=== PATIENT | female | born 1945 | race Caucasian/White ===

== ENCOUNTER 2021-08-31 20:19 | Observation (INO) | payer MEDICARE, OTHER, SELFPAY ==
[2021-08-31 20:31] VITALS: BP 105/67; PULSE 70; RESP 18; TEMP 36.6; O2SAT 96; BMI 23.1
--- NOTE | 2021-08-31 20:35 | DI.RAD.S_ITS ---
PROCEDURE: XR CHEST 1V INDICATIONS: chest pain TECHNIQUE: One view of the chest was acquired. COMPARISON: None. FINDINGS: Surgical changes and devices: None. Lungs and pleura: Lungs are clear. No pleural effusions or pneumothorax. Mediastinum: Mediastinal contours appear normal. Heart size is normal. Bones and chest wall: No suspicious bony lesions. Overlying soft tissues appear unremarkable. IMPRESSION: No acute abnormality Dictated by: Van Smith M.D. on 08/31/2021 at 21:03 Approved by: Van Smith M.D. on 08/31/2021 at 21:08
[2021-08-31 21:25] LABS: Add Manual Diff / Slide Review NO; Basophils Absolute Auto 0 /uL (0-100); Basophils Percent Auto 0.2 % (0-2); Eosinophils Absolute Auto 0 /uL (0-450); Eosinophils Percent Auto 0.1 % (2-4); Hematocrit 31.5 % (36-46); Hemoglobin 11.1 g/dL (12.0-16.0); Lymphocytes Absolute Auto 900 /uL (1100-4500); Lymphocytes Percent Auto 7.4 % (25-40); Mean Corpuscular HGB Conc 35.2 % (30-36); Mean Corpuscular Volume 93.9 fL (80-100); Monocytes Absolute Auto 900 /uL (0-900); Monocytes Percent Auto 7.3 % (3-14); Neutrophils Absolute Auto 10500 /uL (1500-7000); Platelet Count 224 X10^3/uL (150-400); Red Blood Cell Count 3.36 X10^6/uL (4.0-5.2); Red Cell Distribution Width 12.9 % (11.6-14.8); White Blood Cell Count 12.3 X10^3/uL (4.5-11.0)
[2021-08-31 21:33] LABS: Alanine Aminotransferase 148 IU/L (<35); Albumin 4.1 g/dL (3.5-5.0); Albumin Globulin Ratio 1.5 (1.0-2.8); Alkaline Phosphatase 125 U/L (38-126); Aspartate Aminotransferase 163 IU/L (14-36); BUN Creatinine Ratio 16.3 (6-22); Bilirubin Total 1.9 mg/dL (0.2-1.3); Blood Urea Nitrogen 13 mg/dL (7-17); Calcium 9.2 mg/dL (8.4-10.2); Carbon Dioxide 29 mmol/L (22-32); Chloride 90 mmol/L (98-107); Creatine Kinase 27 U/L (30-135); Estimated Glomerular Filt Rate > 60.0 mL/min (>60); Globulin 2.8 g/dL (1.7-4.1); Glucose 229 mg/dL (80-110); HEMOLYSIS < 15 (0-50); Lipase 42 U/L (23-300); Magnesium 1.4 mg/dL (1.6-2.3); Sodium 124 mmol/L (137-145); Total Protein 6.9 g/dL (6.3-8.2)
[2021-08-31 21:38] LABS: Bacteria Urine Few (2-10); Culture Indicated Urine Specimen Cultured; RBC Urine 0-1/HPF (0-5/HPF); Squamous Epithelial Cell Urine 0-1 /HPF (0-5/HPF); WBC Urine 1-5/HPF (0-5/HPF)
[2021-08-31 21:45] LABS: Troponin I < 0.012 ng/mL (0.01-0.034)
[2021-08-31 21:47] LABS: COVID19 -Nasal RAPID Negative (Negative)
[2021-09-01] VITALS (36 sets, daily range): BP systolic 81–140; BP diastolic 43–76; PULSE 58–82; RESP 8–97; TEMP 36.2–37.9; O2SAT 90–100; BMI 23.1
--- NOTE | 2021-09-01 | PATH_ITS ---
[facility] Accession Number: [id number] . 01 Material submitted: . appendix - APPENDIX . 02 Diagnosis: Appendix, Laparoscopic Appendectomy: Goblet cell adenocarcinoma. Please see Cancer Case Summary. . CASE SUMMARY: SPECIMEN Procedure: Laparoscopic appendectomy. . Tumor Tumor site: Circumferentially involves distal and central appendix. 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 Tumor Size (greatest dimension in centimeters): At least 1.2 cm; cannot be precisely determined due to absence of gross identification. Measurement taken from largest circumference on a single slide and by the addition of three 0.4 cm-thick sections. This may be a low estimate given the that the appendix is 8.0 cm in length and the tumor appears to involve the mid and distal appendix. Tumor deposits: Not identified. Tumor extent: Tumor invades through muscularis propria into subserosa/ mesoappendix but does not involve the serosal surface. Lymphovascular invasion: Present. Perineural invasion: Suspicious foci present. . . Margins: Margin status for invasive carcinoma: Negative for tumor. Base of appendix (proximal appendiceal margin): Negative for tumor by immunohistochemistry. Distance from invasive carcinoma to closest mesenteric margin: Within 1 mm. . . Regional Lymph Nodes: Regional lymph node status: Not applicable (no regional lymph nodes submitted or found). . . Pathologic Stage Classification (pTNM, AJCC 8th Edition): pT3, pN not assigned (no nodes submitted or found), pM not applicable. . . Additional Findings: Acute appendicitis and periappendicitis with perforation, fecalith within appendiceal tip. . . . . [facility] 09/08/2021 1609 Local . 02 Comment: As part of routine chemistry quality control analyst, Dr. Bell also reviewed this case and agrees with the diagnosis. . Results discussed with Dr. Gutierrez on 09-06-21 at approximately 4:01 p.m. . 02 Electronically signed: . Krystal Sawyer MD, Pathologist NPI- [id number] . 01 Gross description: . The specimen is received in formalin labeled with the patient's name and appendix. It is composed of a vermiform appendix which measures 8.0 cm in length x 0.7 cm in maximum diameter. The attached mesoappendix measures 4.0 x 1.0 x 0.8 cm. The serosal surface is diop-brown and shows areas of hemorrhage and congestion. An obvious perforation is not identified. The attached mesoappendix is composed of adipose tissue which is hemorrhagic. The appendix is serially sectioned to reveal soft fecal material present in the lumen. In areas, the lumen is obliterated and in a focal area shows luminal dilation of 0.2 cm. A hard fecalith is identified in the tip of the appendix. The lumen surrounding the fecalith is hemorrhagic. No discrete masses are identified. Company [employer] sections are submitted. . A1- Proximal margin en face (blue ink). A2 - Longitudinal section through the tip of the appendix. A3 - Company [employer]orer cross sections of the appendix. ([id number]) A4-A6 - Remaining appendiceal tissue (minus periappendiceal fat) entirely submitted. ([id number]) /[facility] 09/07/2021 1435 Local . 02 Microscopic: . An immunohistochemistry study is performed to evaluate the cells of interest. The control stain shows appropriate reactivity. . Block A3: ABRAHAM - Positive. CK7 - Negative. CK20 - Positive. CDX2 - Positive. Villin - [place] border positive. TOMAS-3 - Negative. TTF-1 - Negative. Chromogranin - Focally positive. Synaptophysin - Focally positive. . Block A1 proximal margin: ABRAHAM: No tumor identified. . The neoplasm is immunopositive for ABRAHAM, CK20, cdx2, and villin and is focally immunopositive for chromogranin and synaptophysin. The neoplasm is immunonegative for CK7, GATA3, and TTF-1. These finding support an interpretation of goblet cell adenocarcinoma. . Per the request of Dr. Gutierrez, immunohistochemical stains for mismatch repair proteins are performed, with controls stained appropriately. The tumor shows the following results: . MLH1: Intact nuclear expression. MSH2: Intact nuclear expression. MSH6: Intact nuclear expression. PMS2: Intact nuclear expression. Background nonneoplastic tissue/internal control with intact nuclear expression. . . INTERPRETATION: No loss of nuclear expression of MMR proteins: low probability of microsatellite instability-high (MSI-H)* . * There are exceptions to the above IHC interpretations. These results should not be considered in isolation, and clinical correlation with genetic counseling is recommended to assess the need for germline testing. . . * This test was developed and its performance characteristics determined by [facility]. It has not been cleared or approved by the U.S. Food and Drug Administration. The FDA has determined that such clearance or approval is not necessary. This test is used for clinical purposes. It should not be regarded as investigational or for research. . . . 02 Pathologist provided ICD-10: C18.1, C7A.020 . 02 CPT . 584475, Z02745, L53324 Specimen Comment: A courtesy copy of this report has been sent to [phone] Performed at: [facility] [address] [id number] MD Per Ibarra MD Phone: [phone] Performed at: [address] [facility] [address] [place], [place] [id number] MD Jagruti Bell MD Phone: [phone]
[2021-09-01] MEDS: SODIUM CHLORIDE 0.9% 1,000 ML 1000 ML IV (01:15)
--- NOTE | 2021-09-01 02:34 | ED.GENADULT ---
HPI - General Adult General Chief complaint: Syncope Stated complaint: not feeling well, passed out at home Time Seen by Provider: 09/01/21 01:01 Source: patient Mode of arrival: Ambulatory History of Present Illness HPI narrative: 76-year-old woman with a history of type 2 diabetes and hypertension presents with 24 hours of feeling generally unwell and then increasing right-sided abdominal pain. She notes that she has been somewhat more fatigued but describes no fevers, nausea, vomiting. She complains of a bit of abdominal bloating but notes that she had a normal bowel movement yesterday. She is not having any chest pain or palpitations. She notes that she recently changed her diet to a completely weak in diet and was assuming that the increased fiber was causing some of her symptoms. Related Data Allergies Allergy/AdvReac Type Severity Reaction Status Date / Time prednisone Allergy Intermediate Difficulty Verified 08/31/21 20:34 Breathing Review of Systems Review of Systems Narrative: Remainder of complete review of systems is otherwise unremarkable except for that included in the HPI. Patient History Medical History (Updated 09/01/21 @ 05:00 by Kylee Cerna MD) Diabetes Hypertension Social History Smoking Status: Current every day smoker Smoking Status: Current every day smoker alcohol intake frequency: holidays/special occasions only Substance Use Type: does not use Exam Initial Vital Signs Initial Vital Signs: Vital Signs Temperature 97.8 F 08/31/21 20:31 Pulse Rate 70 08/31/21 20:31 Respiratory Rate 18 08/31/21 20:31 Blood Pressure 105/67 08/31/21 20:31 Pulse Oximetry 96 08/31/21 20:31 General: Healthy appearing, in no acute distress. Able to give a complete and coherent history. Well-nourished well-developed HEENT: Moist mucous membranes, normal sclera with reactive pupils, Neck: No JVD, supple Respiratory: Lungs with minor rhonchi in the right lower lobe, no wheezing. Full and symmetrical air movement Cardiac: Regular rate and rhythm no murmurs no bruits Abdomen: Soft, mild distension with tenderness along the entire right side and specifically into the right lower quadrant with developing peritoneal signs. Good bowel tones, no flank pain Skin: Warm and dry, no rashes Neurologic: Grossly neurologically intact with no obvious asymmetries or abnormalities Extremities: No trauma, well perfused Psych: Cooperative, appropriate insight and affect Course Orders Ordered: ED Orders 08/31/21 20:35 XR chest 1V Stat 08/31/21 20:47 EKG-12 Lead Stat 08/31/21 21:15 COVID19 -Nasal swab/Pre-Proc Stat Complete Blood Count AUTO DIFF Stat Comprehensive Metabolic Panel Stat Lipase Stat Magnesium Stat Troponin & CK Cardiac Panel Stat 08/31/21 21:17 Urine Culture Stat Urine Microscopic Stat 09/01/21 02:59 CT abdomen pelvis w con Stat Discontinued Medications Sodium Chloride (Normal Saline 0.9%) 1,000 mls @ 1,000 mls/hr IV BOLUS ONE Stop: 09/01/21 02:04 Last Infusion: 09/01/21 03:09 Dose: 0 mls/hr Documented by: Admin: 09/01/21 01:15 Dose: 1,000 mls/hr Documented by: ROLAN Vital Signs Vital signs: Vital Signs - 8 hr 09/01/21 01:16 09/01/21 01:17 09/01/21 01:30 Pulse Rate 61 58 L 59 L Blood Pressure 135/65 126/63 Pulse Oximetry 98 97 98 09/01/21 02:00 09/01/21 02:30 09/01/21 03:00 Pulse Rate 65 61 63 Blood Pressure 140/65 124/57 L 140/64 Pulse Oximetry 98 98 99 Medical Decision Making Lab Data Result diagrams: 08/31/21 21:15 08/31/21 21:15 Labs: Lab Results 08/31/21 08/31/21 08/31/21 Range/Units 21:15 21:15 21:15 WBC 12.3 H (4.5-11.0) X10^3/uL RBC 3.36 L (4.0-5.2) X10^6/uL Hgb 11.1 L (12.0-16.0) g/dL Hct 31.5 L (36-46) % MCV 93.9 (80-100) fL MCH 33.0 (26-34) PG MCHC 35.2 (30-36) % RDW 12.9 (11.6-14.8) % Plt Count 224 (150-400) X10^3/uL Neut % (Auto) 85.0 H (50-75) % Lymph % (Auto) 7.4 L (25-40) % [place] % (Auto) 7.3 (3-14) % Eos % (Auto) 0.1 L (2-4) % Baso % (Auto) 0.2 (0-2) % Neut # (Auto) 04540 H (9824-3668) /uL Lymph # (Auto) 900 L (8913-0086) /uL [place] # (Auto) 900 (0-900) /uL Eos # (Auto) 0 (0-450) /uL Baso # (Auto) 0 (0-100) /uL Sodium 124 L (137-145) mmol/L Potassium 4.0 (3.4-5.1) mmol/L Chloride 90 L (98-107) mmol/L Carbon Dioxide 29 (22-32) mmol/L BUN 13 (7-17) mg/dL Creatinine 0.80 (0.52-1.04) mg/dL Estimated GFR > 60.0 (>60) mL/min BUN/Creatinine Ratio 16.3 (6-22) Glucose 229 H (80-110) mg/dL Calcium 9.2 (8.4-10.2) mg/dL Magnesium 1.4 L (1.6-2.3) mg/dL Total Bilirubin 1.9 H (0.2-1.3) mg/dL AST 163 H (14-36) IU/L ALT 148 H (<35) IU/L Alkaline Phosphatase 125 (38-126) U/L Total Creatine Kinase 27 L (30-135) U/L CK-MB (CK-2) TNP CK-MB (CK-2) Rel Index TNP Troponin I < 0.012 (0.01-0.034) ng/mL Total Protein 6.9 (6.3-8.2) g/dL Albumin 4.1 (3.5-5.0) g/dL Globulin 2.8 (1.7-4.1) g/dL Albumin/Globulin Ratio 1.5 (1.0-2.8) Lipase 42 (23-300) U/L Urine RBC (0-5/HPF) Urine WBC (0-5/HPF) Ur Squamous Epith Cells (0-5/HPF) Urine Bacteria (None) Ur Culture Indicated? SARS-CoV-2 (PCR) Negative (Negative) 08/31/21 Range/Units 21:17 WBC (4.5-11.0) X10^3/uL RBC (4.0-5.2) X10^6/uL Hgb (12.0-16.0) g/dL Hct (36-46) % MCV (80-100) fL MCH (26-34) PG MCHC (30-36) % RDW (11.6-14.8) % Plt Count (150-400) X10^3/uL Neut % (Auto) (50-75) % Lymph % (Auto) (25-40) % [place] % (Auto) (3-14) % Eos % (Auto) (2-4) % Baso % (Auto) (0-2) % Neut # (Auto) (3799-7547) /uL Lymph # (Auto) (8821-3399) /uL [place] # (Auto) (0-900) /uL Eos # (Auto) (0-450) /uL Baso # (Auto) (0-100) /uL Sodium (137-145) mmol/L Potassium (3.4-5.1) mmol/L Chloride (98-107) mmol/L Carbon Dioxide (22-32) mmol/L BUN (7-17) mg/dL Creatinine (0.52-1.04) mg/dL Estimated GFR (>60) mL/min BUN/Creatinine Ratio (6-22) Glucose (80-110) mg/dL Calcium (8.4-10.2) mg/dL Magnesium (1.6-2.3) mg/dL Total Bilirubin (0.2-1.3) mg/dL AST (14-36) IU/L ALT (<35) IU/L Alkaline Phosphatase (38-126) U/L Total Creatine Kinase (30-135) U/L CK-MB (CK-2) CK-MB (CK-2) Rel Index Troponin I (0.01-0.034) ng/mL Total Protein (6.3-8.2) g/dL Albumin (3.5-5.0) g/dL Globulin (1.7-4.1) g/dL Albumin/Globulin Ratio (1.0-2.8) Lipase (23-300) U/L Urine RBC 0-1/hpf (0-5/HPF) Urine WBC 1-5/hpf (0-5/HPF) Ur Squamous Epith Cells 0-1 /hpf (0-5/HPF) Urine Bacteria Few (2-10) H (None) Ur Culture Indicated? Specimen cultured SARS-CoV-2 (PCR) (Negative) Urine Dip Bedside Urine Glucose Negative Bedside Urine Bilirubin - Negative Bedside Urine Ketone +/- 5 Urine Specific [place] 1.015 Bedside Urine Occult Blood - Negative Bedside Urine pH 7 Bedside Urine Protein + 30 Bedside Urine Urobilinogen 1+ 2mg Bedside Urine Nitrite - Negative Bedside Urine Leukocytes + 70 Esterase Point of care testing: Urine Dip Bedside Urine Glucose Negative Bedside Urine Bilirubin - Negative Bedside Urine Ketone +/- 5 Urine Specific [place] 1.015 Bedside Urine Occult Blood - Negative Bedside Urine pH 7 Bedside Urine Protein + 30 Bedside Urine Urobilinogen 1+ 2mg Bedside Urine Nitrite - Negative Bedside Urine Leukocytes + 70 Esterase Imaging Data Chest x-ray: Radiologist's Impression: FINDINGS:? ? Surgical changes and devices:? None.? ? Lungs and pleura:? Lungs are clear.? No pleural effusions or pneumothorax.? ? Mediastinum:? Mediastinal contours appear normal.? Heart size is normal.? ? Bones and chest wall:? No suspicious bony lesions.? Overlying soft tissues appear unremarkable.? ? IMPRESSION:? No acute abnormality ? ? Dictated by: Van Smith M.D. on 08/31/2021 at 21:03 ? ? CT scan - abdomen/pelvis: Radiologist's Impression: Findings compatible with acute appendicitis. No cat appendiceal focal drainable collection or pneumoperitoneum. Diffuse circumferential wall thickening of the cecum and ascending colon which may be related to under distention, however, a mild colitis could also have this appearance. Meseret Edmonds MD ECG Data Interpretation: Sinus rhythm at a rate of 71 Normal intervals, normal axis Nonspecific ST T wave changes No acute ischemic changes MDM Narrative Medical decision making narrative: 76-year-old woman presents with right-sided abdominal pain and clinical exam is slightly distended with increasing right lower quadrant pain, mild leukocytosis and abnormal LFTs. CT scan is ordered. CT scan returns with findings compatible with acute appendicitis. Case is reviewed with Dr. Gutierrez, general surgeon. Antibiotics will be initiated, bridging orders are written. Patient will be admitted with anticipation of surgical intervention later today. Findings are reviewed with patient's questions are answered. She remains clinically stable and safe for transfer to the floor. She will need to remain NPO. Discharge Plan Departure Patient Disposition: Admitted as Observation Clinical Impression: Acute appendicitis Admit Date/Time: 09/01/21 04:36 Admit Provider: Paulie Gutierrez
--- NOTE | 2021-09-01 02:59 | DI.CT.S_ITS ---
PROCEDURE: CT ABDOMEN PELVIS W CON INDICATIONS: Right lower quadrant pain, leukocytosis TECHNIQUE: After the administration of oral and IV contrast, axial sections were acquired from the lung bases to the pubic symphysis. Coronal and sagittal reformats were performed. For radiation dose reduction, the following was used: automated exposure control, adjustment of mA and/or kV according to patient size. COMPARISON: [facility], CR, XR CHEST 1V, 08/31/2021, 20:43. FINDINGS: Image quality: Excellent. Lung bases: Lingular, left lower lobe and right middle lobe scars and atelectasis. Small hiatal hernia. Heart: Heart size is normal. There is trace pericardial effusion. ABDOMEN: Liver: Unremarkable. Gallbladder: Unremarkable. Biliary ducts: Unremarkable. Pancreas: Mild atrophy of pancreas. Spleen: Unremarkable. Adrenal Glands: Unremarkable. Kidneys and Ureters: Unremarkable. Stomach and Bowel: There is a appendicoliths. Appendix is thickened measuring 11 mm. There is cecal thickening. Mild stranding in the right lower quadrant. A small amount of free fluid is present in the right pericolic gutter. No free air. No organized drainable fluid collections. Peritoneum: No abnormal intraperitoneal fluid. No free air. Ventral Wall: No hernia. Abdominal Nodes: No retroperitoneal or mesenteric adenopathy by size criteria. Vessels: Aorta and inferior vena cava are normal in size. PELVIS: Pelvic Organs: Uterus is normal in size. There is a 1.9 x 1.5 cm enhancing nodule in central uterus with partial calcification, likely a uterine fibroid. Ovaries are grossly normal. No free fluid in the cul-de-sac. Bladder: Bladder is distended. Bladder wall is normal. Pelvic Nodes: No enlarged lymph nodes. Miscellaneous: No inguinal hernias are seen. Bones: Moderate degenerative changes in lumbar spine. IMPRESSION: 1. The CT findings suggest acute appendicitis. A differential diagnosis is cecal cancer or segmental colitis. There is a small amount of free fluid in the right pericolic gutter. No organized fluid collections to suggest abscess. No free air to suggest perforation. 2. Please see the body of the report for other nonurgent incidental findings. No significant discrepancy with the ammonia box tender radiology preliminary report. Dictated by: Christophe Torres M.D. on 09/01/2021 at 8:00 Approved by: Christophe Torres M.D. on 09/01/2021 at 8:12
[2021-09-01] MEDS: PIPERACILLIN/TAZO 4.5 GM in SODIUM CHLORIDE 0.9% 100 ML 200 ML IV (05:51)
[2021-09-01] MEDS: SODIUM CHLORIDE 0.9% 1,000 ML 125 ML IV ×2 (05:51→19:40)
[2021-09-01] MEDS: HYDROMORPHONE 1 MG INJ 0.5 MG IV ×2 (06:45→12:22)
[2021-09-01] MEDS: PIPERACILLIN/TAZO 3.375 GM in SODIUM CHLORIDE 0.9% 100 ML 25 ML IV ×2 (12:21→19:40)
--- NOTE | 2021-09-01 12:30 | PM.HP.1 ---
History of Present Illness History of Present Illness Date Patient Seen: 09/01/21 Time Patient Seen: 12:30 Chief complaint: not feeling well, passed out at home Narrative: 76-year-old woman admitted to the hospital with acute appendicitis. She had generalized pain for several days became acutely worse and primarily focal to the right lower quadrant. Admission in the emergency room WBC [address] demonstrates dilated appendix with stranding and fecalith, no abscess consistent with acute appendicitis. She received is Zosyn her pain is improved since admission. No previous abdominal surgery. Insulin-dependent diabetes Patient History Medical History Diabetes Hypertension Family & Social History Social History: household members spouse Prior Living Arrangements House Safety & Behavioral: Feels Safe in Current Yes Environment Been Physically Hurt or No Threatened By a Person Suicidal Ideation Description None Suicide Plan Description No Plan Tobacco & Substance use: Smoking Status Never smoker alcohol intake current alcohol intake frequency holiday/special occasion Substance Use Type does not use Meds Home Medications and Allergies Home Medications Medication Instructions Recorded Confirmed Type carvedilol 25 mg tablet 25 mg PO BID 09/01/21 09/01/21 History insulin glargine 100 unit/mL (3 20 unit SUBCUT BEDTIME 09/01/21 09/01/21 History mL) subcutaneous pen (Basaglar KwikPen U-100 Insulin) lisinopril 40 mg tablet 40 mg PO DAILY 09/01/21 09/01/21 History metformin 850 mg tablet 850 mg PO TID 09/01/21 09/01/21 History Allergies Allergy/AdvReac Type Severity Reaction Status Date / Time prednisone Allergy Intermediate Difficulty Verified 08/31/21 20:34 Breathing Exam Vital Signs (past 8 hours): - 09/01/21 05:00 09/01/21 05:08 09/01/21 05:10 Temperature Pulse Rate 67 66 Respiratory Rate Blood Pressure 123/60 Pulse Oximetry 97 97 09/01/21 05:29 09/01/21 09:38 09/01/21 12:22 Temperature 100.3 F H 97.8 F 98.8 F Pulse Rate 81 68 64 Respiratory Rate 18 16 16 Blood Pressure 122/61 104/43 L 104/54 L Pulse Oximetry 98 95 97 Oxygen Delivery Method Room Air Oxygen Flow Rate 0 Narrative Exam Narrative: GENERAL: Adult female in no apparent distress HEENT: No scleral icterus CV: Regular rate, no peripheral edema LUNGS: No increased work of breathing. Patient speaks in full sentences without oxygen support. ABDOMEN: Tender right lower quadrant no peritonitis NEURO: Nonfocal, normal strength throughout, normal gait. SKIN: Warm and dry Objective Labs Result Diagrams: 08/31/21 21:15 08/31/21 21:15 Labs: Laboratory Results - last 24 hr 08/31/21 08/31/21 08/31/21 21:15 21:15 21:15 WBC 12.3 H RBC 3.36 L Hgb 11.1 L Hct 31.5 L MCV 93.9 MCH 33.0 MCHC 35.2 RDW 12.9 Plt Count 224 Neut % (Auto) 85.0 H Lymph % (Auto) 7.4 L [place] % (Auto) 7.3 Eos % (Auto) 0.1 L Baso % (Auto) 0.2 Neut # (Auto) 85374 H Lymph # (Auto) 900 L [place] # (Auto) 900 Eos # (Auto) 0 Baso # (Auto) 0 Sodium 124 L Potassium 4.0 Chloride 90 L Carbon Dioxide 29 BUN 13 Creatinine 0.80 Estimated GFR > 60.0 BUN/Creatinine Ratio 16.3 Glucose 229 H Calcium 9.2 Magnesium 1.4 L Total Bilirubin 1.9 H AST 163 H ALT 148 H Alkaline Phosphatase 125 Total Creatine Kinase 27 L CK-MB (CK-2) TNP CK-MB (CK-2) Rel Index TNP Troponin I < 0.012 Total Protein 6.9 Albumin 4.1 Globulin 2.8 Albumin/Globulin Ratio 1.5 Lipase 42 Urine RBC Urine WBC Ur Squamous Epith Cells Urine Bacteria Ur Culture Indicated? SARS-CoV-2 (PCR) Negative 08/31/21 21:17 WBC RBC Hgb Hct MCV MCH MCHC RDW Plt Count Neut % (Auto) Lymph % (Auto) [place] % (Auto) Eos % (Auto) Baso % (Auto) Neut # (Auto) Lymph # (Auto) [place] # (Auto) Eos # (Auto) Baso # (Auto) Sodium Potassium Chloride Carbon Dioxide BUN Creatinine Estimated GFR BUN/Creatinine Ratio Glucose Calcium Magnesium Total Bilirubin AST ALT Alkaline Phosphatase Total Creatine Kinase CK-MB (CK-2) CK-MB (CK-2) Rel Index Troponin I Total Protein Albumin Globulin Albumin/Globulin Ratio Lipase Urine RBC 0-1/hpf Urine WBC 1-5/hpf Ur Squamous Epith Cells 0-1 /hpf Urine Bacteria Few (2-10) H Ur Culture Indicated? Specimen cultured SARS-CoV-2 (PCR) Assessment & Plan Assessment and plan (1) Acute appendicitis: Status: Acute Assessment & Plan narrative: 76-year-old woman with insulin-dependent diabetes and acute appendicitis. CT abdomen pelvis was reviewed demonstrates a dilated appendix with fecalith no abscess. We discussed management options including both antibiotic and surgical therapy. Given the presence of fecalith recommended that we proceed with laparoscopic appendectomy. Technical details of the operation were discussed. Operative risks including bleeding, infection, staple line leak, damage to surrounding structures were discussed. Her questions have been answered she is in agreement with this plan. Time Spent With Patient Critical Care time: I spent a total of [] minutes of critical care time on this patient's care today; this time is exclusive of procedural time. Quality VTE Deep Vein Thrombosis/Pulmonary Embolism Present on Admission: No
--- NOTE | 2021-09-01 12:46 | CM.IDA ---
Initial DCP Assessment Note Pt is a 76 yo female, resident of [place],arrives after passing out at home found to have acute appendicitis and going to the OR today for lap lino w/ Dr christianson PCP: Not listed Payer: [employer] Reviewed chart, pt discussed in multidisciplinary rounds this morning. Patient scheduled for surgery at approx 1730. Attempted to meet w/patient this morning for DCP assessment and she was fast asleep; will reattempt assessment post operatively. Plan: DC likely home w/family and close outpatient f/u JANNY De León Discharge Planning/Care Management CM Discharge Assessment Start: 09/01/21 12:37 Freq: Status: Active Protocol: Document 09/01/21 12:38 JOSSELIN (Rec: 09/01/21 12:46 JOSSELIN [id number]) Discharge Planning Assessment Assigned Pharmacy Technician JANNY Veliz DPOA/Assigned Designee Name Abdi Roberts, spouse Contact Information [phone] Advance Directives? No History Provided By Medical Record Prior Living Arrangements House Household Members spouse Type of transportation used prior to Drives own vehicle admit Independent with ADL's Yes Is patient alert and oriented? Yes Barriers to Discharge No Comment Home w/spouse expected upon DC Discharge Plan Home Transportation Arrangement Spouse Referrals Initiated None needed Additional Comment No referrals needed at this time Whiteboard Updated in Patient Room with Yes name and ext. # of Pharmacy Technician
[2021-09-01] MEDS: LACTATED RINGERS 1,000 ML 42 ML IV (16:57)
[2021-09-01] MEDS: BUPIVACAINE 0.25% (PF) VIAL 30 ML INJ (17:29)
--- NOTE | 2021-09-01 17:33 | SUR.OPER ---
Supine on padded OR bed, head on pillow, right arm secured on padded arm boards at <90 degrees abduction, left arm padded with gel pad and yucked at side, legs uncrossed, safety belt at thigh, tape over blanket over lower legs. Gel pad under patients bilateral heels.
--- NOTE | 2021-09-01 17:38 | SUR.OPER ---
patients glasses placed in patient labeled black glass case provided by hospital. Pre-op RN kept and will place in PACU for patient after surgery.
--- NOTE | 2021-09-01 18:11 | P.OP_ITS ---
Operative Date/Time/Diagnoses Date of procedure: 09/01/21 Time of procedure: 18:11 Pre-op diagnosis: Acute appendicitis Post-op diagnosis: same Procedure & Clinicians Procedure: Laparoscopic appendectomy Same procedure as scheduled: Yes Indications: Acute appendicitis Surgeon: Paulie Gutierrez Click Yes if Unassisted: Yes Anesthesia Type: General Operative Notes Findings: Perforated appendicitis with a rind no hipolito abscess Specimen(s): other (Appendix) Estimated Blood Loss (mL): 20 Procedure in detail: Patient was brought to the operating room placed supine on the table. Bilateral lower extremity compression devices were applied. Anesthesia was induced and they intubated with an endotracheal tube. They received 3.375 g of Zosyn prior to skin incision. The left arm was tucked and appropriately padded. They were prepped and draped in sterile fashion. Time-out was performed. An infraumb ilical incision was made the umbilical stalk was grasped and elevated and incision was made and the abdomen was entered atraumatically. A 12 mm balloon trocar was then placed through the incision and pneumoperitoneum of 14 mm Hg was established. The scope was then inserted and the abdomen inspected, there was no evidence of injury upon entry. Two 5 mm ports were placed under direct visualization, one in the left lower quadrant and second in the lower midline. A thorough laparoscopic evaluation was performed inspecting all four quadrants, there was no purulence peritonitis. Patient was then tilted right side up. The small bowel was then swept to the upper aspect of the abdomen. The tenie were followed to the base of the cecum where the appendix was identified. It was partially retrocecal and I mobilized the cecum medially in order to completely expose it by incising the white line of Toldt. The appendix was was mobilized from its lateral attachments. The base of the appendix was healthy the tip had perforated and was within a rind of inflammatory tissue not a hipolito abscess. The appendix was grasped and a window within the mesentery was made at the base of the appendix using the [place] dissector with care to avoid injuring the cecum. The mesoappendix was then divided using the endo-stapler with a staple length of 2.5 mm-white load. The mesenteric staple line was inspected for hemostasis. The appendix was then amputated flush at the cecum using the endo- stapler blue load. The specimen was retrieved using a endoscopic retrieval bad through the 10 mm infra-umbilical port. The right paracolic gutter and the pouch of René were irrigated The 5 mm ports were then removed under direct visualization. The umbilical fascial incision was closed with 0 Vicryl in a figure-eight fashion. The skin wounds were irrigated and closed with 4-0 Monocryl followed by the application of Dermabond. Sponge instrument count at the end of the operation was correct. The patient tolerated procedure well was extubated and transferred to the postoperative care unit in stable condition. Complications: none Post-operative Condition: stable Disposition: Acute Care Plan for aftercare: Okay for diet continue Zosyn
[2021-09-01] MEDS: ONDANSETRON 4 MG/2 ML INJ IV ×2 (18:24→19:40)
[2021-09-01] MEDS: PROMETHAZINE 25 MG TABLET 12.5 MG PO (18:41)
[2021-09-01] MEDS: SCOPOLAMINE 1 PATCH TOP (19:41)
[2021-09-01] MEDS: ACETAMINOPHEN 325 MG TABLET 650 MG PO (20:45)
[2021-09-01] MEDS: carvediloL 12.5 MG TABLET 25 MG PO (20:48)
[2021-09-02] VITALS (14 sets, daily range): BP systolic 98–104; BP diastolic 45–53; PULSE 62–79; RESP 16–18; TEMP 36.4–37.3; O2SAT 95–99
[2021-09-02] MEDS: HYDROMORPHONE 1 MG INJ 0.5 MG IV (01:08)
[2021-09-02] MEDS: METOCLOPRAMIDE 10 MG/2 ML INJ IV ×2 (01:08→07:41)
--- NOTE | 2021-09-02 01:37 | PC.NURSE ---
Patient returned from surgery at 1914. Chief complaint nausea. Surgeon contacted and received med orders to address.
[2021-09-02] MEDS: PIPERACILLIN/TAZO 3.375 GM in SODIUM CHLORIDE 0.9% 100 ML 25 ML IV ×3 (04:12→20:10)
--- NOTE | 2021-09-02 05:48 | PC.NURSE ---
Patient only voided 200ml since surgery. Did a bladder scan for post void residual. Bladder scan showed 398ml. RN notified.
[2021-09-02] MEDS: ONDANSETRON 4 MG/2 ML INJ IV ×2 (05:50→12:39)
[2021-09-02 09:10] LABS: Add Manual Diff / Slide Review NO; Basophils Absolute Auto 0 /uL (0-100); Basophils Percent Auto 0.1 % (0-2); Eosinophils Absolute Auto 0 /uL (0-450); Hematocrit 32.8 % (36-46); Hemoglobin 11.3 g/dL (12.0-16.0); Lymphocytes Absolute Auto 600 /uL (1100-4500); Lymphocytes Percent Auto 6.5 % (25-40); Mean Corpuscular HGB Conc 34.6 % (30-36); Mean Corpuscular Hemoglobin 32.9 PG (26-34); Monocytes Absolute Auto 600 /uL (0-900); Neutrophils Absolute Auto 7600 /uL (1500-7000); Neutrophils Percent Auto 86.4 % (50-75); Platelet Count 228 X10^3/uL (150-400); Red Blood Cell Count 3.45 X10^6/uL (4.0-5.2); Red Cell Distribution Width 12.8 % (11.6-14.8); White Blood Cell Count 8.9 X10^3/uL (4.5-11.0)
--- NOTE | 2021-09-02 11:06 | PM.PNPO.1 ---
Subjective Subjective Date Patient Seen: 09/02/21 Time Patient Seen: 12:59 Interval history: Nausea dry heaving overnight. No flatus or bowel movement. Exam Vital Signs (past 8 hours): - 09/02/21 03:27 09/02/21 05:00 09/02/21 07:00 Temperature 98.9 F 97.8 F Pulse Rate 79 73 Respiratory Rate 16 16 Blood Pressure 99/53 L 101/48 L Pulse Oximetry 96 95 96 09/02/21 07:47 09/02/21 08:59 Temperature Pulse Rate Respiratory Rate Blood Pressure 101/48 L Pulse Oximetry 96 Oxygen Delivery Method Room Air Oxygen Flow Rate 0 Narrative Exam Narrative: General adult female alert oriented no acute distress Abdomen distended compressible incision clean dry intact Objective Labs Result Diagrams: 09/02/21 08:57 08/31/21 21:15 Labs: Laboratory Results - last 24 hr 09/02/21 08:57 WBC 8.9 RBC 3.45 L Hgb 11.3 L Hct 32.8 L MCV 95.0 MCH 32.9 MCHC 34.6 RDW 12.8 Plt Count 228 Neut % (Auto) 86.4 H Lymph % (Auto) 6.5 L [place] % (Auto) 7.0 Eos % (Auto) 0.0 L Baso % (Auto) 0.1 Neut # (Auto) 7600 H Lymph # (Auto) 600 L [place] # (Auto) 600 Eos # (Auto) 0 Baso # (Auto) 0 PFSH Medical History Diabetes Hypertension Social History household members: spouse Smoking Status: Never smoker alcohol intake: current Assessment & Plan Post-op Postoperative Procedures: Procedures Operation Date: 09/01/21 17:30 Actual Procedure Side Surgeon p Laparoscopic Appendectomy Paulie Gutierrez MD Postoperative status narrative: 76-year-old woman postoperative day 1 status post laparoscopic appendectomy perforated. Has a postoperative ileus. Trial of clear liquids today. Await return of bowel function. Continue Zosyn. SCDs and Lovenox Quality VTE Deep Vein Thrombosis/Pulmonary Embolism Present on Admission: No
[2021-09-02] MEDS: INSULIN LISPRO 100 UNIT/ML 3ML VIAL SUBCUT (16:35)
[2021-09-03] VITALS (12 sets, daily range): BP systolic 106–173; BP diastolic 55–83; PULSE 44–88; RESP 17–18; TEMP 36.3–37.4; O2SAT 96–98
[2021-09-03] MEDS: HYDROMORPHONE 1 MG INJ 0.5 MG IV ×2 (01:23→08:10)
[2021-09-03] MEDS: SODIUM CHLORIDE 0.9% 1,000 ML 125 ML IV (01:29)
[2021-09-03] MEDS: PIPERACILLIN/TAZO 3.375 GM in SODIUM CHLORIDE 0.9% 100 ML 25 ML IV (05:10)
[2021-09-03] MEDS: carvediloL 12.5 MG TABLET 25 MG PO (08:33)
[2021-09-03] MEDS: lisinopriL 20 MG TABLET 40 MG PO (08:36)
[2021-09-03] MEDS: ENOXAPARIN 40 MG/0.4 ML SYRINGE SUBCUT (08:37)
[2021-09-03] MEDS: HYDROCODONE/ACET 5/325 TABLET 1 TAB PO (12:08)
[2021-09-03] MEDS: INSULIN LISPRO 100 UNIT/ML 3ML VIAL SUBCUT (12:28)
--- NOTE | 2021-09-03 13:38 | PM.DS.1 ---
History of Present Illness History of Present Illness Date Patient Seen: 09/03/21 Time Patient Seen: 13:38 Chief complaint: not feeling well, passed out at home Narrative: 76-year-old woman admitted to the hospital with acute appendicitis. She had generalized pain for several days became acutely worse and primarily focal to the right lower quadrant. Admission in the emergency room WBC [address] demonstrates dilated appendix with stranding and fecalith, no abscess consistent with acute appendicitis. She received is Zosyn her pain is improved since admission. No previous abdominal surgery. Insulin-dependent diabetes Discharge Providers Provider Date of admission: 09/01/21 04:36 Discharge Date: 09/03/21 Discharge provider: Paulie Gutierrez MD Summary Hospital Course Discharge Diagnosis: Acute perforated appendicitis Hospital Course: Patient underwent a laparoscopic appendectomy which demonstrated acute perforated appendicitis there was no purulent peritonitis. She continued on Zosyn postoperatively. At discharge she is afebrile tolerating a diet ambulatory pain is well controlled. She will be discharged home on a course of oral antibiotic therapy. Status at Discharge Cognitive/behavioral status at discharge: oriented Functional status at discharge: independent ambulation Time Spent with Patient Time spent: Greater than 30 minutes Exam Vital Signs (past 8 hours): - 09/03/21 08:30 09/03/21 08:33 09/03/21 08:36 Temperature 98.2 F Pulse Rate 69 69 69 Respiratory Rate 18 Blood Pressure 120/65 120/65 120/65 Pulse Oximetry 96 09/03/21 09:50 09/03/21 11:41 Temperature 98.8 F Pulse Rate 88 Respiratory Rate 18 Blood Pressure 106/59 L Pulse Oximetry 96 97 Oxygen Delivery Method Room Air Oxygen Flow Rate 0 Narrative Exam Narrative: General adult woman alert oriented no acute distress Chest nonlabored respirations Abdomen mildly distended. Soft compressible. Incisions clean dry intact. Objective Labs Result Diagrams: 09/02/21 08:57 08/31/21 21:15 [facility] Medical History Diabetes Hypertension Social History household members: spouse Smoking Status: Never smoker alcohol intake: current Discharge Plan Discharge Plan Patient Disposition: Home Provider Discharge Comment: -Okay to shower tomorrow. -Do not submerge wounds in water until seen in follow-up. -No lifting >20 lbs x 4 weeks. -Walking only for exercise for 4 weeks. -No driving while taking narcotics. Discharge orders & Medications Prescriptions: New amoxicillin-pot clavulanate [Augmentin] 875-125 mg tablet 1 tab PO BID Qty: 14 0RF oxycodone 5 mg tablet See Rx Instructions .ROUTE .COMPLEX PRN (Reason: pain) Qty: 15 0RF Rx Instructions: 1-2 tabs every 6 hrs as needed for pain acetaminophen [Tylenol] 325 mg capsule 650 mg PO QID PRN (Reason: pain) Qty: 60 0RF Continued Basaglar KwikPen U-100 Insulin 100 unit/mL (3 mL) insulin pen 20 unit SUBCUT BEDTIME 0RF Label Comments: INJECT 20 UNITS UNDER THE SKIN EVERY NIGHT AT BEDTIME carvedilol 25 mg tablet 25 mg PO BID 0RF Label Comments: TAKE 1 TABLET BY MOUTH TWICE DAILY lisinopril 40 mg tablet 40 mg PO DAILY 0RF Label Comments: TAKE 1 TABLET BY MOUTH ONCE DAILY metformin 850 mg tablet 850 mg PO TID 0RF Label Comments: TAKE 1 TABLET BY MOUTH THREE TIMES DAILY Follow up/Referrals: Paulie Gutierrez MD [Physician] - 2 Weeks Diet/Activity/Treatments Diet: Diet as Tolerated Skin/Wound/Dressing Care Report to your healthcare provider any signs of infection, such as:: chills, fever, increased pain, unusual drainage and unusual redness Visit Report/Discharge Packet Instructions: DI for an Appendectomy, DI for Laparoscopy Discharge Data Attending Provider: Paulie Gutierrez Quality VTE Deep Vein Thrombosis/Pulmonary Embolism Present on Admission: No
--- NOTE | 2021-09-03 15:53 | CM.DPC ---
DCP Discharge Home Per Surgeon, pt is now tolerating diet and pain is controlled and ambulating and stable for d/c home today on oral abx and no identified barriers to discharge. Per RN, instructions will be given to pt and no current concerns for d/c. Plan: Patient to d/c home this afternoon via spouse POV and no further SW needs at this time. JANNY Roman
--- NOTE | 2021-09-03 15:58 | PC.NURSE ---
Pt A&Ox3, VSS, afebrile on RA. She reports feelling hungry this a.m. and tolerates oatmeal, wheat toast and eggs without n/v or increased abdominal pain. Pt with a distended and tight abdomen, with tenderness. BS active x4. She reports good pain control with PRN pain medications. She ambulates in the mar around the nurses station multiple times, she denies passing gas. MD at bedside this a.m. evaluating patient stating she may go today if she continues to do well. She tolerates lunch well and continues to ambulate around the mar. She is cleared for discharge this afternoon. She verbalizes understanding of site care, activity restrictions, medications, worsening symptoms, symptoms of infections and follow up care. Her arrives to transport her home and she is escorted to private vehicle with and all of her belongings at approximately 1400.
== END 2021-09-03 14:10 | disposition home or self-care (01) ==
LOC: ED 09-01 01:09 → AC 09-01 04:37
PROVIDERS: Admitting Provider Surgery; Emergency Provider Emergency Medicine; Visit Provider Surgery
PROC: 0DTJ4ZZ Resection of Appendix, Percutaneous Endoscopic Approach (ICD-10-PCS; CPT 44970; principal; 2021-09-01 17:30)
DX: K35.32 Acute appendicitis with perforation, localized peritonitis, and gangrene, without abscess (principal); R55 Syncope and collapse; E11.9 Type 2 diabetes mellitus without complications; I10 Essential (primary) hypertension; F17.210 Nicotine dependence, cigarettes, uncomplicated; Z79.4 Long term (current) use of insulin; Z79.84 Long term (current) use of oral hypoglycemic drugs; Z20.822 Contact with and (suspected) exposure to COVID-19
CPT/HCPCS: 44970; 36415; 71045; 74177; 80053; 81003; 81015; 82550; 82962; 83690; 83735; 84484; 85025; 87086; 87635; 93005; 93010; 94760; 94762; 96361; 96365; 96366; 96372; 96375; 96376; 99220; 99284; C9803; G0378; J1170; J1650; J1815; J2405; J2543; J2704; J2765; J3010; Q9967

== ENCOUNTER → 2021-09-15 13:34 | Outpatient (CLI) | payer MEDICARE, OTHER, SELFPAY ==
[2021-09-01 05:03] VITALS: BMI 23.1
--- NOTE | 2021-09-15 13:36 | DI.CT.S_ITS ---
PROCEDURE: CT CHEST W CON INDICATIONS: Appendiceal adenocarcinoma staging TECHNIQUE: After the administration of intravenous contrast, 5 mm thick sections acquired from the pulmonary apices to the posterior costophrenic angles. 1 mm axial lung, 5 mm thick coronal and sagittal reformats and 7 mm axial MIP were acquired. For radiation dose reduction, the following was used: automated exposure control, adjustment of mA and/or kV according to patient size. COMPARISON: [facility], CT, CT ABDOMEN PELVIS W CON, 09/01/2021, 3:04. [facility], CR, XR CHEST 1V, 08/31/2021, 20:43. FINDINGS: Image quality: Excellent. Lungs and pleura: No mass or significant pulmonary nodules. No acute air space opacities. Minimal atelectasis or scarring. No pleural effusions or pneumothorax. Central and peripheral airways are patent and normal in caliber. Mediastinum: Heart size is normal. No pericardial effusion. No mediastinal or hilar adenopathy by size criteria. Thoracic aorta and central pulmonary arteries are normal in size. Esophagus is normal in caliber. No hiatal hernia. Bones and chest wall: No suspicious bony lesions. Moderate degenerative change. No vertebral body compression fractures. No axillary or supraclavicular adenopathy by size criteria. Thyroid gland is unremarkable. Abdomen: Visualized upper abdominal solid organs appear normal. Upper abdominal bowel loops are normal in caliber. IMPRESSION: No metastatic disease in the chest. No significant pulmonary nodules. No adenopathy. Dictated by: Sameer Mera M.D. on 09/15/2021 at 15:48 Approved by: Sameer Mera M.D. on 09/15/2021 at 15:54
== END ==
PROVIDERS: PCP Internal Medicine; Referring Provider Surgery; Visit Provider Surgery
DX: C18.1 Malignant neoplasm of appendix (principal)
CPT/HCPCS: 71260; Q9967

== ENCOUNTER → 2021-09-20 11:26 | Outpatient (CLI) | payer MEDICARE, OTHER, SELFPAY ==
[2021-09-01 05:03] VITALS: BMI 23.1
[2021-09-20 13:10] LABS: COVID19 -Nasal RAPID Negative (Negative)
== END ==
PROVIDERS: PCP Internal Medicine; Visit Provider Surgery
DX: Z01.812 Encounter for preprocedural laboratory examination (principal); Z20.822 Contact with and (suspected) exposure to COVID-19
CPT/HCPCS: 87635; C9803

== ENCOUNTER 2021-09-21 12:26 | Day surgery (SDC) | payer MEDICARE, OTHER, SELFPAY ==
[2021-09-01 05:03] VITALS: BMI 23.1
--- NOTE | 2021-09-21 | PATH_ITS ---
[facility] Accession Number: [id number] . 01 Material submitted: . rectum - RECTAL BIOPSY . 02 Diagnosis: A. Rectum, Biopsy: Tubular adenoma. [facility] 09/24/2021 1543 Local . 02 Electronically signed: . Lanette Florence MD, Pathologist NPI- [id number] . 01 Gross description: . RECTAL BIOPSY: Received in formalin is 1 fragment(s) of diop, soft tissue measuring 0.3 x 0.2 x 0.2 cm submitted entirely in 1 cassette(s) /CPE 09/23/2021 1431 Local . 02 Pathologist provided ICD-10: D12.8 . 02 CPT . 823021 Specimen Comment: A courtesy copy of this report has been sent to [phone] Performed at: 01 [facility] [address] [id number] MD Per Ibarra MD Phone: [phone] Performed at: 02 [facility] [address] [place], [place] [id number] MD Jagruti Bell MD Phone: [phone]
[2021-09-21] MEDS: LACTATED RINGERS 1,000 ML 200 ML IV (13:03)
[2021-09-21 13:15] VITALS: BP 123/70; PULSE 60; RESP 16; TEMP 36.8; O2SAT 100; BMI 20.2
--- NOTE | 2021-09-21 13:48 | PM.PREOP ---
Pre-operative Note Interval Note History & Physical reviewed/Exam performed by Physician: Yes Changes to H&P: No
[2021-09-21] MEDS: fentaNYL 250 MCG/5 ML INJ IV (14:06)
[2021-09-21] MEDS: MIDAZOLAM 5 MG/5 ML VIAL IV (14:07)
--- NOTE | 2021-09-21 14:13 | PM.OP.COLON ---
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 The procedure was discussed in detail with the patient. Potential risks complications including infection, bleeding, missed diagnosis, perforation, need for surgery, and were explained. Their questions were answered and informed consent was obtained. Patient was brought to the procedure room and placed standard monitoring equipment. The patient's vital signs were monitored continuously throughout the entire procedure. Prior to starting time-out was performed. The patient was placed in the left lateral recumbent position. Procedural sedation was administered. Examination began with a thorough inspection of the perianal area there was no evidence of fissures, fistulae, external hemorrhoids or cutaneous malignancy. The colonoscopy scope was then placed into the anal canal and was advanced to the cecum, which was identified by the ileocecal valve, the appendiceal orifice and the confluence of the taenia. The scope was then slowly withdrawn examining colon thoroughly in all directions, irrigating it of any residual stool. FINDINGS 1. 5 mm rectal polyp removed with biopsy forceps. 2. No colonic masses The patient tolerated the procedure well. They will be discharged once criteria are met. The prep was of good/excellent quality. The withdrawl time was 6 minutes. The sedation time was 18 minutes. Specimen(s): other (Rectal polyp) Complications: none Impression: Colonic polyp Post-procedure Recommendations: Colonoscopy in 5 years Plan for aftercare: Up coming Right hemicolectomy Disposition: same day surgery
[2021-09-21 14:19] VITALS: BP 97/58; PULSE 68; RESP 13; TEMP 36.4; O2SAT 99
[2021-09-21 14:23] VITALS: BP 108/62; PULSE 64; RESP 12; O2SAT 99
[2021-09-21 14:28] VITALS: BP 116/63; PULSE 60; RESP 13; O2SAT 98
[2021-09-21 14:37] VITALS: BP 122/69; PULSE 59; RESP 13; TEMP 36.2; O2SAT 97
== END 2021-09-21 14:47 | disposition home or self-care (01) ==
PROVIDERS: PCP Internal Medicine; Referring Provider Surgery; Visit Provider Surgery
PROC: 0DJD8ZZ Inspection of Lower Intestinal Tract, Via Natural or Artificial Opening Endoscopic (ICD-10-PCS; CPT 45378; principal; 2021-09-21 13:45)
DX: C18.1 Malignant neoplasm of appendix (principal); E11.9 Type 2 diabetes mellitus without complications; Z79.4 Long term (current) use of insulin; I10 Essential (primary) hypertension; D12.8 Benign neoplasm of rectum
CPT/HCPCS: 45380; 99152; J2250; J3010

== ENCOUNTER → 2021-10-15 09:13 | Outpatient (CLI) | payer MEDICARE, OTHER, SELFPAY ==
[2021-09-01 05:03] VITALS: BMI 23.1
[2021-10-15 10:17] LABS: COVID19 -Nasal RAPID Negative (Negative)
== END ==
PROVIDERS: PCP Internal Medicine; Visit Provider Surgery
DX: Z01.812 Encounter for preprocedural laboratory examination (principal); Z20.822 Contact with and (suspected) exposure to COVID-19
CPT/HCPCS: 87635

== ENCOUNTER 2021-10-18 06:23 | Inpatient (IN) | payer MEDICARE, OTHER, SELFPAY ==
[2021-09-01 05:03] VITALS: BMI 23.1
[2021-10-12 08:39] VITALS: BMI 21.4
[2021-10-18] VITALS (21 sets, daily range): BP systolic 96–138; BP diastolic 44–68; PULSE 52–72; RESP 13–18; TEMP 36.1–37.4; O2SAT 96–100; BMI 21.4
--- NOTE | 2021-10-18 | PATH_ITS ---
[facility] Accession Number: [id number] . 01 Material submitted: . colon - RIGHT COLON . 02 Diagnosis: Right Colon, Hemicolectomy (Terminal Ileum 4.5 cm in Length with Cecum and Colon 18.5 cm in Length): Negative for residual tumor. Margins negative for tumor. Fourteen pericolonic lymph nodes negative for tumor by immunohistochemistry studies (0/14). Additional findings: diverticulosis, tubular adenoma (cecum), polypoid redundancy (colon), benign lymphoid aggregates Pathologic Stage Classification (AJCC 8th Edition): pT3 pN0 (staging updated to reflect negative lymph nodes). V 10/28/2021 1156 Local . 02 Comment: As part of routine quality control scientist, this case was also reviewed by Dr. Goyal, who agrees with the interpretation. . 02 Electronically signed: . Krystal Sawyer MD, Pathologist NPI- [id number] . 01 Gross description: . Received in formalin and labeled with the patient's name and designated right colon is a right hemicolectomy specimen, that consists of terminal ileum (4.5 cm long x 3.0 cm in diameter), contiguous with cecum and colon (18.5 cm long x 4.0 - 6.0 cm in diameter). The appendix is surgically absent. The specimen is received closed with stapled ends; the proximal mucosal margin is inked blue, and the distal is inked black. The serosa is diop with focally extensive dense, dusky hemorrhagic adhesions and a minimal amount of attached fat in the cecum, and a moderate amount of attached adherent omentum in the distal portion. The serosa overlying the appendix is surfaced with dense hemorrhagic dusky adhesion. The radial margin of the attached cecal fat is inked orange. There are at least five, 0.3 - 0.7 cm, superficial diop fleshy polyps in the cecum and colon, extending to within 7 cm from the proximal margin and 5.5 cm from the distal margin. The mucosa surrounding the appendiceal orifice is unremarkable with no discrete mass identified. The serosa overlying the previous appendix site is inked green. The remaining mucosa is diop with normal folding; no additional mucosal lesions are identified. The wall is uniform, 0.3 cm thick, with up to four diverticula, up to 0.5 cm long. No gross evidence of perforation is identified. The attached omentum is edematous with focal adhesions. No obvious nodules or tumor deposits are grossly identified. The attached cecal fat contains fourteen, 0.6 - 1.6 cm possible lymph nodes. Additionally received is a 26.0 x 9.5 x 1.5 cm portion of detached yellow lobulated omentum. The cut surface is yellow, lobulated and focally hemorrhagic with no discrete nodules or tumor deposits identified. No additional lesions are identified. [employer] sections are submitted as follows: . A1: Proximal and distal mucosal margins, perpendicular. A2: [employer] radial margin and ileocecal valve. A3-A4: Entire appendiceal orifice, radially sectioned. A5: Polyps from cecum, entirely submitted. A6: Polyps from colon, entirely submitted. A7: [employer] diverticula. A8: [employer] uninvolved terminal ileum and colon mucosa. A9: Four possible lymph nodes. A10: Four possible lymph nodes. A11: Four possible lymph nodes. A12: Two possible lymph nodes (one inked and bisected). A13: Solar [employer] detached omentum. ([id number]) /LULA 10/28/2021 1156 Local . 02 Microscopic: . An immunohistochemistry study is performed to evaluate the cells of interest. The control stains show appropriate reactivity. . RESULTS: Blocks A1-A8 ABRAHAM: No residual tumor identified. . Blocks A9-A13 ABRAHAM: Fourteen lymph nodes negative for metastatic carcinoma (0/14). . . * This test was developed and its performance characteristics determined by [facility]. It has not been cleared or approved by the U.S. Food and Drug Administration. The FDA has determined that such clearance or approval is not necessary. This test is used for clinical purposes. It should not be regarded as investigational or for research . 02 Pathologist provided ICD-10: C18.1 . 02 CPT . 357325, S68558 Specimen Comment: A courtesy copy of this report has been sent to [phone] Performed at: 01 [facility] [address] [id number] MD Per Ibarra MD Phone: [phone] Performed at: 02 [facility] [address] [place], [place] [id number] MD Jagruti Bell MD Phone: [phone]
[2021-10-18] MEDS: LACTATED RINGERS 1,000 ML 100 ML IV ×3 (07:32→12:43)
--- NOTE | 2021-10-18 07:36 | PM.PREOP ---
Pre-operative Note Interval Note History & Physical reviewed/Exam performed by Physician: Yes Changes to H&P: No
[2021-10-18] MEDS: metroNIDAZOLE 500 MG/100 ML PIGGYBACK 100 MG IV ×2 (08:08→17:02)
[2021-10-18] MEDS: levoFLOXacin 500 MG/100 ML PIGGYBACK 100 MG IV (08:15)
--- NOTE | 2021-10-18 08:35 | SUR.OPER ---
Lithotomy on padded OR bed. Newborn Pad Positioner under torso. Head on pillow, left arm padded and tucked at side. right arm on padded armboard at < 90 degrees. Legs secured in padded yellow fin stirrups.
[2021-10-18] MEDS: BUPIVACAINE 0.25% (PF) VIAL 30 ML INJ (09:07)
--- NOTE | 2021-10-18 10:28 | P.OP_ITS ---
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 Pathology demonstrates a well differentiated, low grade, <=1.2 cm, tumor invades through the muscularis propria into the subserosa.? No lymphovascular invasion present.? Base of the appendix negative for tumor distance from closest mesenteric margin 1 mm no regional lymph nodes were identified. Staging CT Chest/Abdomen/Pelvis negative. Surgeon: Paulie Gutierrez Click Yes if Unassisted: Yes Anesthesia Type: General Operative Notes Findings: no metastatic disease. Leak free anastamosis Specimen(s): other (right colon) Estimated Blood Loss (mL): 20 Procedure in detail: Patient was brought to the operating room placed supine on the table. Bilateral lower extremity compression devices were applied. She received Flagyl and levofloxacin prior to skin incision. General anesthesia was induced she was intubated with an endotracheal tube. She was then sterilely prepped and draped. A Priest catheter was sterilely placed. Time-out was performed. Infraumbilical incision was made the fascia was grasped elevated and sharply incised the abdomen was entered atraumatically. Pneumoperitoneum was established. Ad ditional 5 mm working ports were placed suprapubic, left and right lower quadrants. A careful inspection of the abdomen was made. There was no evidence of carcinomatosis. The liver was normal in its appearance. There was adhesive disease from her prior perforated appendectomy the cecum was adherent to the lateral wall as well as a portion of the terminal ileum. The terminal ileum was mobilized off of the retroperitoneum using careful sharp dissection. The iliac vessels were observed and the ureter was identified and protected posteriorly out of harm's way. The mobilization was then continued for the ascending colon along the white line of Toldt. The sweep of the duodenum was identified and was kept posteriorly out of harm's way. The mobilization continued all the way to the hepatic flexure. The lesser sac was then opened and the transverse colon was from the stomach. A limmited lower midline incision was made. The right colon was exterotized through a wound protector. The terminal ileum was dived with the BENIGNO stapler 75 mm Blue load. The mesentery to the right colon was divided with the ligature. The ileocolic pedicle was doubly ligated with silk and then divided. The transverse colon was divided with the BENIGNO stapler 75 mm blue load just distal to the hepatic flexure. A side to side anastamosis was formed. An enterotomy and colotomy were made and then a common channel was formed with a third staple load of the BENIGNO. The anastamosis was patent, without tension and hemostatic. The common opening was then closed running fashion with 3-0 PDS and imbricated with interrupted silk suture. A colonoscopy was placed into the rectum and insufflation demonstrated no anastamotic leak. The mesnteric defect was closed with running Vicryl. The abdomen was irrigated with saline hemostasis was checked. The fascia was closed with running 1 PDS followed by Vircyl for the subcutaneous tissue monocryl for the skin followed by dermabond. The port incisions were closed with monocryl and dermabond. She emerged from anesthesia and was transfered to recovery in stable condition. Complications: none Post-operative Condition: stable Disposition: Acute Care
[2021-10-18] MEDS: ONDANSETRON 4 MG/2 ML INJ IV ×2 (10:55→11:13)
[2021-10-18] MEDS: ACETAMINOPHEN IV 1,000 MG/100 ML VIAL 400 MG IV (11:03)
--- NOTE | 2021-10-18 11:15 | SUR.PHASEI ---
1113 Dr Zapata at bedside. Informed that patient still with nausea. Giving second dose of zofran at this time. See order for Phenergan ME supp if needed and pt unable to tolerate nausea.
[2021-10-18] MEDS: PROMETHAZINE 12.5 MG SUPP PR (11:38)
--- NOTE | 2021-10-18 11:41 | SUR.PHASEI ---
Block start time 1042. Time out done at at 1042 . Monitoring initiated and maintained throughout procedure. Patient remained stable throughout procedure, no adverse reactions noted. Block end time 1048.
--- NOTE | 2021-10-18 12:35 | SUR.PHASEI ---
Dr Zapata updated that patient transferred to floor, no further dry heaves but continues to complain of nausea after Phenergan Supp given for dry heaves. See order for scop patch which is ok to give it to patient on floor. Zach Celaya called and notified
--- NOTE | 2021-10-18 12:39 | SUR.PHASEI ---
1220 Patient transfered to room 212 in bed by this RN. SBAR report to Zach Celaya. Pt still with nause abut stated ok to transfer.
[2021-10-18] MEDS: KETOROLAC 30 MG/ML VIAL IV ×2 (12:43→19:56)
--- NOTE | 2021-10-18 12:51 | PC.NURSE ---
Addendum entered by Zach Cotton R.N. 10/18/21 18:21: Patient tolerating clear liquids in small amounts, states nausea has resolved since scopalamine patch was placed. IV fluids infusing as ordered. Betancourt remains in place. Abdominal incisions remain unchanged. Original Note: Patient received from PACU to room 212 APPROXIMATELY 1220PM. ORIENTED TO ROOM AND CALL LIGHT, CALL LIGHT PLACED WITHIN REACH. pATIENT STATES SHE IS STILL NAUSEATED, WITHOUT EMESIS AT THIS TIME. STATES PAIN TO ABDOMEN IS MILD AT THIS TIME. 3 LAP SITES WITH STERI STRIPS INTACT AND SMALL AQUACEL TO MID-UMBILICAL AREA CDI WITHOUT DRAINAGE OR BLEEDING. BETANCOURT IN PLACE DRAINING CLEAR YELLOW URINE. WAS AT BEDSIDE WHEN PATIENT ARRIVED. CONTINUE WITH PLAN OF CARE.
[2021-10-18] MEDS: SCOPOLAMINE 1 PATCH TOP (13:25)
[2021-10-18] MEDS: OXYCODONE IR 5 MG TABLET PO (14:11)
--- NOTE | 2021-10-18 15:08 | PT-IP ANOTE ---
Received PT orders and reviewed the chart. Spoke with RN who states pt has been restless and nauseated since return from OR and just fell asleep. Pt allowed to rest. Will follow up Monday AM.
[2021-10-18] MEDS: ACETAMINOPHEN 325 MG TABLET 650 MG PO (17:02)
[2021-10-18] MEDS: INSULIN LISPRO 100 UNIT/ML 3ML VIAL SUBCUT (17:09)
[2021-10-19] VITALS (16 sets, daily range): BP systolic 96–111; BP diastolic 46–55; PULSE 56–69; RESP 16–21; TEMP 36.7–37.3; O2SAT 95–99
[2021-10-19] MEDS: ONDANSETRON 4 MG/2 ML INJ IV ×3 (00:29→23:40)
[2021-10-19] MEDS: metroNIDAZOLE 500 MG/100 ML PIGGYBACK 100 MG IV ×2 (00:29→11:05)
[2021-10-19] MEDS: LACTATED RINGERS 1,000 ML 100 ML IV ×2 (00:30→12:21)
[2021-10-19] MEDS: ACETAMINOPHEN 325 MG TABLET 650 MG PO ×5 (00:30→23:39)
[2021-10-19] MEDS: KETOROLAC 30 MG/ML VIAL IV ×2 (01:26→09:40)
[2021-10-19 05:47] LABS: Add Manual Diff / Slide Review NO; BUN Creatinine Ratio 17.3 (6-22); Basophils Absolute Auto 0 /uL (0-100); Basophils Percent Auto 0.2 % (0-2); Blood Urea Nitrogen 18 mg/dL (7-17); Calcium 8.3 mg/dL (8.4-10.2); Carbon Dioxide 22 mmol/L (22-32); Chloride 93 mmol/L (98-107); Eosinophils Absolute Auto 0 /uL (0-450); Estimated Glomerular Filt Rate 51.5 mL/min (>60); Glucose 158 mg/dL (80-110); HEMOLYSIS < 15 (0-50); Hematocrit 28.8 % (36-46); Hemoglobin 10.3 g/dL (12.0-16.0); Lymphocytes Absolute Auto 1000 /uL (1100-4500); Lymphocytes Percent Auto 12.6 % (25-40); Mean Corpuscular HGB Conc 35.9 % (30-36); Mean Corpuscular Hemoglobin 32.8 PG (26-34); Mean Corpuscular Volume 91.5 fL (80-100); Monocytes Absolute Auto 700 /uL (0-900); Monocytes Percent Auto 8.9 % (3-14); Neutrophils Absolute Auto 6300 /uL (1500-7000); Neutrophils Percent Auto 78.3 % (50-75); Platelet Count 252 X10^3/uL (150-400); Potassium 3.5 mmol/L (3.4-5.1); Red Blood Cell Count 3.14 X10^6/uL (4.0-5.2); Red Cell Distribution Width 13.1 % (11.6-14.8); Sodium 122 mmol/L (137-145); White Blood Cell Count 8.1 X10^3/uL (4.5-11.0)
--- NOTE | 2021-10-19 09:09 | PM.PNPO.1 ---
Subjective Subjective Date Patient Seen: 10/19/21 Time Patient Seen: 09:11 Interval history: -nausea no emesis overnight. Pain is well controlled. Exam Vital Signs (past 8 hours): - 10/19/21 02:00 10/19/21 05:00 10/19/21 06:30 Temperature 99.2 F Pulse Rate 69 Respiratory Rate 16 Blood Pressure 110/54 L Pulse Oximetry 98 99 99 10/19/21 07:00 Temperature 98.8 F Pulse Rate 67 Respiratory Rate 20 Blood Pressure 111/50 L Pulse Oximetry 95 Oxygen Delivery Method Room Air Oxygen Flow Rate 0 Narrative Exam Narrative: General adult woman alert oriented no acute distress Chest nonlabored respirations Abdomen soft appropriately tender to palpation. Objective Labs Result Diagrams: 10/19/21 05:27 10/19/21 05:27 Labs: Laboratory Results - last 24 hr 10/19/21 10/19/21 05:27 05:27 WBC 8.1 RBC 3.14 L Hgb 10.3 L Hct 28.8 L MCV 91.5 MCH 32.8 MCHC 35.9 RDW 13.1 Plt Count 252 Neut % (Auto) 78.3 H Lymph % (Auto) 12.6 L [place] % (Auto) 8.9 Eos % (Auto) 0.0 L Baso % (Auto) 0.2 Neut # (Auto) 6300 Lymph # (Auto) 1000 L [place] # (Auto) 700 Eos # (Auto) 0 Baso # (Auto) 0 Sodium 122 L Potassium 3.5 Chloride 93 L Carbon Dioxide 22 BUN 18 H Creatinine 1.04 Estimated GFR 51.5 L BUN/Creatinine Ratio 17.3 Glucose 158 H Calcium 8.3 L PFSH Medical History (Updated 10/12/21 @ 09:33 by Adri Wayne RN) Anxiety about health Bilateral cataracts Diabetes Fatty liver Hearing loss Hx of Legionnaire's disease (~1989) Hypertension Surgical History (Updated 10/12/21 @ 09:15 by Adri Wayne RN) History of laparoscopic appendectomy (09/01/21) History of surgery Hx of cornea transplant Hx of hand surgery Social History household members: spouse Smoking Status: Never smoker alcohol intake: current Assessment & Plan Post-op Postoperative Procedures: Procedures Operation Date: 10/18/21 07:45 Actual Procedure Side Surgeon p Laparascopic assisted colectomy Right Paulie Gutierrze MD Postoperative plan narrative: 76-year-old woman postoperative day 1 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 -clear liquid diet as tolerated. Continue IV fluids until taking adequate p.o. -24 hours of levofloxacin and Flagyl for perioperative antibiotic -remove Priest catheter -SCDs and prophylactic Lovenox Quality VTE Deep Vein Thrombosis/Pulmonary Embolism Present on Admission: No
[2021-10-19] MEDS: levoFLOXacin 500 MG/100 ML PIGGYBACK 100 MG IV (09:38)
[2021-10-19] MEDS: carvediloL 12.5 MG TABLET 25 MG PO (09:41)
[2021-10-19] MEDS: lisinopriL 20 MG TABLET 40 MG PO (09:42)
[2021-10-19] MEDS: hydroCHLOROthiazide 25 MG TABLET 12.5 MG PO (09:42)
[2021-10-19] MEDS: ENOXAPARIN 40 MG/0.4 ML SYRINGE SUBCUT (09:44)
[2021-10-19] MEDS: METOCLOPRAMIDE 10 MG/2 ML INJ 5 MG IV ×2 (09:48→21:32)
--- NOTE | 2021-10-19 11:38 | PT.IIE ---
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) Surgery Performed Operation Date: 10/18/21 07:45 Actual Procedures p Laparascopic assisted colectomy(Right) - Paulie Gutierrez MD Medical History (Last Updated 10/12/21 @ 09:33 by Adri Wayne RN) Anxiety about health Bilateral cataracts Diabetes Fatty liver Hearing loss Hx of Legionnaire's disease (~1989) Hypertension Physical Therapy Inpatient Evaluation/Re-Eval M1 PT/OT-IP Prior Functional Status Start: 10/18/21 13:55 Freq: NEEDED Status: Active Protocol: Document 10/19/21 11:38 AB (Rec: 10/19/21 12:30 AB [id number]) Medical Review Prior Functional Status Medical History Reviewed Yes Communication able to make needs known; with slight confusion Mobility and Gait pt stated that she is independent with all mobilities and ambulation without AD Social History Household Members spouse Living Arrangements House Number of Floors (Floors) One Floor Number of Stairs To Enter/Railing? 2 steps B rails to enter 1 step down to living room Home Environment Standard Height Toilet Home Equipment Hand Held Shower M2 PT-IP Current Condition Start: 10/18/21 13:55 Freq: NEEDED Status: Active Protocol: Document 10/19/21 11:38 AB (Rec: 10/19/21 12:30 AB [id number]) Physical Therapy Current Condition Current Condition Evaluation Date 10/19/21 Treatment Diagnosis appendiceal carcinoma s/p R hemicolectomy; difficulty in walking Onset Date 10/18/21 M3 PT-IP Subjective Start: 10/18/21 13:55 Freq: NEEDED Status: Active Protocol: Document 10/19/21 11:38 AB (Rec: 10/19/21 12:30 AB [email or web address]) Subjective Physical Therapy Visit Type Type Initial Evaluation Visit Start Time 11:38 Visit Stop Time 12:10 Total Visit Minutes 32 Number of RESPIRATORY THERAPY ASSISTANT Visits 0 Physical Therapy Visit Comments Patient Comments agreeable to do PT Therapy Pain Assessment Pain When Pain Assessed At Rest Pain Present Pain Present Pain Reported Location Abdomen Intensity 3 Scale Used Numeric (0 - 10) Pain Management Techniques Distraction,Modification of Treatment,Re-positioning, Timing of Activity with Medications M4 PT-IP Mobility and Gait Start: 10/18/21 13:55 Freq: NEEDED Status: Active Protocol: Document 10/19/21 11:38 AB (Rec: 10/19/21 12:30 AB [id number]) PT-Bed Mobility Assessment Rolling Type of Rolling Log Rolling Level of Assist Minimal Assistance,1 Person Assistance Supine to Sit Supine to Sit Minimal Assistance,1 Person Assistance PT-Transfer Assessment Sit to and From Stand Sit to and from Stand Minimal Assistance,1 Person Assistance,Use of Upper Extremities Equipment Transfer Assistive Device Gait Belt,Front Wheeled Walker Orthotic/Prosthetic Devices or Brace: No Transfers Transfer Destination Chair Transfer Technique ambulated Transfer Ability Level of Assist Minimal Assistance,1 Person Assistance,Use of Upper Extremities Comments Mobility Comments educated pt on abdominal precautions and log roll bed mobility. pt with slight confusion and requires cues with all tasks. BP in supine: 100/50. completed log roll supine to sit min A and cues. able to sit on EOB SBA. c/o nausea. BP in sittin/55 . completed sit to stand min A and cues and ambulated ~ 12 ft towards the chair using fWW . refused further ambulation but agreed to sit on the chair . positioned on the chair. call light and table placed within reach. Gait Assessment Gait Gait Assistance Required: Minimum Assistance Distance (Feet) 12 Able to Maintain Weight Bearing Status Yes During Gait Assistive Devices Assistive Device Gait Belt,Front Wheeled Walker Orthotic/Prosthetic Devices or Brace: No Gait Deviations General Gait Pattern Decreased Stride Length, Decreased Feet Clearance Factors Limiting Gait Function Factors Limiting Gait Function Decreased Activity Tolerance, Decreased Strength,Limited Range of Motion,Pain,Poor Balance,Poor Safety Awareness PT-Balance Assessment Sitting Balance and Reactions Static Sitting Balance Ability Good Dynamic Sitting Balance Ability Good Standing Balance and Reactions Static Standing Balance Ability Fair Dynamic Standing Balance Ability Fair Device Used FWW M5 PT-IP Objective Assessments Start: 10/18/21 13:55 Freq: NEEDED Status: Active Protocol: Document 10/19/21 11:38 AB (Rec: 10/19/21 12:30 AB [id number]) Orientation Orientation/Cognition Level of Alertness Alert Orientation Name,Place,Situation Language Function Ability No Deficits Noted Safety Awareness Decreased Safety Awareness Memory Description Short Term Impaired Comments with slight confusion Gross Range of Motion Lower Extremity ROM Assessment Within Functional Limits Strength Lower Extremity Strength Hip 4-/5 Knee 4-/5 Sensation Assessment Sensation Gross Sensation WNL Muscle Tone Muscle Tone WNL Yes M6 PT-IP Treatment Start: 03/28/22 13:55 Freq: NEEDED Status: Active Protocol: Document 10/19/21 11:38 AB (Rec: 10/19/21 12:30 AB [id number]) Physical Therapy Treatment Education Education Provided Precautions,Post-Op Packet, Safety M7 PT-IP Assessment and Plan Start: 10/18/21 13:55 Freq: NEEDED Status: Active Protocol: Document 10/19/21 11:38 AB (Rec: 10/19/21 12:30 AB [email or web address]) PT Summary Assessment and Plan Potential Rehabilitation Potential Good Status of Condition at Evaluation Evolving Summary Impairments Pain,ROM,Strength,Balance, Coordination,Sensation,Tone, Cognition,Bed Mobility, Transfers,Gait,Activity Tolerance Assessment Summary pt requiring min A with mobility using FWW. pt with decrease activity tolerance with c/o nausea and only able to ambulate 12 ft at this time using a FWW. will continue to assess progress. pt plans to go home and spouse will assist her. will conduct caregiver training when appropriate as well as stair climbing training. Goals Bed Mobility Goal Independent Transfer Goal Independent,Front Wheeled Walker Gait Goal Independent,Front Wheel Walker Gait Distance 250 Other Goals improve ambulation without AD SBA 300 ft up/down 2 steps B rails SBA, updown 1 step without AD SBA Days to Meet Goals 10 Frequency of Treatment Frequency Of Treatment Once a Day Treatment Plan Physical Therapy Treatment Plan Bed Mobility Training,Transfer Training,Gait Training, Therapeutic Exercise,Balance Retraining,Post Op Education, Discharge Planning,Hot or Cold Pack,Neuromuscular Re-ed, Coordination Retraining,Manual Therapy Precautions Abdominal Surgery Precautions Log Roll,Lifting Restrictions, Gait Belt above Incisional Area Recommendations To Nursing Amount of Assist Needed 1 Person Assist Discharge Recommendations PT Discharge Recommendations Home with Assistance Transportation Needs at Discharge Private Vehicle
--- NOTE | 2021-10-19 12:10 | CM.DANOTE ---
Patient is a 76 yo female who was admitted on 10/18/21 for Colon Resection. Pt has [facility] and [facility] for insurance and her PCP is Jensen Ching. EMR was reviewed. Per Surgeon, pt tolerated procedure well and will need to begin slowly advancing diet and ambulating. Per RN, pt has been tolerating clears but somewhat nauseous. Having some bowel tones. PT ordered and pending. SW met bedside with pt and explained role and pt confirms she lives at home with her spouse in [place] and is independent at baseline. Pt denies any hx of HH or SNF and spouse is her DPOA. Pt states since her Lap Appe in Aug 2021 a little over a month ago, she was able to d/c home with spouse assist and made slow progress with healing but prior to admission for this surgery was feeling really good and healed and ambulating and living life well. Pt confirms some ongoing nausea and had met with Dental Assisting Instructor Norma pre-surg and states she purchased all the recommended food on the list to be ready for her d/c home but requests Dental Assisting Instructor to meet with her again bedside as she has baseline diabetes, nausea and unable to tolerate much. Pt does not anticipate any needs and declines the need for HH at this time and states spouse is available and a good caregiver and will assist. SW updated Norma Dental Assisting Instructor and she kindly will get some nutrition together to provide to pt this morning to help with intake. Plan: SW to follow closely after PT eval and recommendations towards confirming safe d/c home with spouse assist when stable and any further identified needs. JANNY Roman Discharge Planning/Care Management CM Discharge Assessment Start: 10/19/21 12:03 Freq: Status: Active Protocol: Document 10/19/21 12:03 (Rec: 10/19/21 12:10 [id number]) Discharge Planning Assessment Assigned Workgroup Leader JANNY Grey DPOA/Assigned Designee Name spouse Héctor Contact Information [phone] Advance Directives? Yes Advance Directives on File No History Provided By Patient,Medical Record Has Patient been admitted in last 30 No days? Comment Last admission in Aug 2021 for appendicitis and discharged home Prior Living Arrangements House Household Members spouse Type of transporation used prior to Drives own vehicle admit Independent with ADL's Yes Is patient alert and oriented? Yes Caregiver for Another No Community Services used prior to Physical Therapy admission: Comment Pending PT eval and recommendations Barriers to Discharge No Comment Home w/spouse expected upon DC Discharge Plan Home Transportation Arrangement Spouse Referrals Initiated None needed Additional Comment No referrals needed at this time pending PT eval Whiteboard Updated in Patient Room with Yes name and ext. # of Workgroup Leader Review Status In Process Please Provide Date Initial DC 10/19/21 Assessment Was Performed Next Review Type Continued Stay Review Pre-Anesthesia Assessment Start: 10/12/21 08:39 Freq: Status: Active Protocol: Document 10/12/21 08:39 CAB (Rec: 10/12/21 09:33 CAB [id number]) Pre-Anesthesia Assessment Patient Information Reviewed Via Phone Assessment Assessment Completed With Patient Comment COVID screen @ 10/15/21 Primary Care Provider Jensen Ching Seen Specialist in Last 12 Months Yes Specialist Seen General surgeon,Oncologist Primary Language Persian Preferred Language Persian International Representative Required No Height 162.56 cm Weight 56.699 kg Body Mass Index (BMI) 21.4 Hearing Ability Hard of Hearing,Use of Hearing Aid Visual Assist Glasses Dentition Type Teeth, Natural Present Barriers to Learning None Hx Anesthesia Reactions Yes: I had a hard time breathing in recovery, I couldn't breath s/p appy Hx Family Anesthesia Reaction No Hx Malignant Hyperthermia No Hx Blood Transfusions No Hx Blood Transfusion Reaction No Anesthesia Review Requested No Resaw Tailer No alcohol intake current alcohol intake frequency holidays/special occasions only Smoking Status Never smoker Substance Use Type does not use Pain Present Pain Reported History of Falling (Recent or History of No ) Patient is completely paralyzed or No completely immobile Mental Status Oriented to own ability Comment Walks every day, active Is patient on oxygen? No Does patient have OAKES/SOB No Hx Sleep Apnea No CPAP/BIPAP use not prescribed Currently Taking a Beta Davidson Yes: Carvedilol Hx Chest Pain No Hx SOB No Hx Syncope or Dizziness No Anti-Coagulant Therapy No Has a Storeroom Attendant No Cardiac Testing No Hx Pacemaker/ICD No Pacemaker Rep Required? No Cardiac Clearance Received Not Applicable Diet Type At Home Regular dysphagia No Gastrointestinal Symptoms Loose Stools Urinary Catheter Present No Hx Urinary Self Catheterization No Diabetes Yes Patient No Lactating No Hx Drug Resistant Organism No Presence of External or Internal Medical Yes: Hearing aids Devices Have you had any close contact with No someone diagnosed with COVID-19? Received a COVID vaccine? Yes Received all doses? Yes Marital Status Lives With spouse Prior Living Arrangements House Number of Floors (Floors) One Floor Support System Spouse Does the Patient Have Assistance After Yes Surgery Patient Discharge Plan Description Return Home Comment Pt not advised on length of stay per surgeon Feels Safe in Current Environment Yes Been Physically Hurt or Threatened By a No Person in Current Environment Do you have thoughts of harming yourself None or others? Are you currently considering suicide? No Do you have a plan to hurt yourself or No Plan others? Do You Have Any Spiritual Beliefs That No May Affect Your HC Choices? Do You Have Any Cultural Practices That No May Affect Your HC Choices? Comment Jeffy Who Can We Speak to About Patient's Care Family, friends Identifying Code for Release of Patient Declines to issue Information Health Care Proxy/Next of Kin Héctor () Health Care Proxy Emergency Contact Name Héctor Spencer Emergency Contact Advance Directives? No Power of Radiology Specialist Yes Power of Radiology Specialist Name Héctor Spencer Power of Radiology Specialist PAC Instructions Diabetes instructions,Durable medical equipment,Medications to take/avoid,No ETOH/ petroleum product on skin DOS, NPO,Post-op transportation,Pre -op antibiotic,Sensory aids, Sturdy shoes/comfortable clothes,Do not bring valuables and remove jewelry
[2021-10-19] MEDS: POTASSIUM CHLORIDE 20 MEQ TAB PO (12:19)
[2021-10-19] MEDS: POTASSIUM CHLORIDE IN WATER 10 MEQ/100 ML PIGGYBACK 100 MEQ IV ×2 (12:25→14:37)
[2021-10-19] MEDS: INSULIN LISPRO 100 UNIT/ML 3ML VIAL SUBCUT (13:22)
[2021-10-19] MEDS: POTASSIUM CHLORIDE IN WATER 10 MEQ/100 ML PIGGYBACK 50 MEQ IV ×2 (16:45→19:02)
[2021-10-19] MEDS: KETOROLAC 30 MG/ML VIAL 15 MG IV ×2 (17:34→23:40)
--- NOTE | 2021-10-19 21:51 | PC.NURSE ---
Pt's BP 103/55, held BP medications per MD order. Rec'd order to change insulin admin to ACHS from Q6. No insulin given at 2100 d/t not meeting protocol requirements. Pt reports mild nausea, given 5 mg metoclopramide. Will continue to monitor.
[2021-10-20] VITALS (11 sets, daily range): BP systolic 143–153; BP diastolic 70–85; PULSE 60–72; RESP 16–20; TEMP 36.6–37.5; O2SAT 96–99
[2021-10-20 05:16] LABS: Add Manual Diff / Slide Review NO; Basophils Absolute Auto 0 /uL (0-100); Basophils Percent Auto 0.2 % (0-2); Eosinophils Absolute Auto 100 /uL (0-450); Eosinophils Percent Auto 0.6 % (2-4); Hematocrit 34.2 % (36-46); Hemoglobin 11.9 g/dL (12.0-16.0); Lymphocytes Absolute Auto 1500 /uL (1100-4500); Lymphocytes Percent Auto 17.3 % (25-40); Mean Corpuscular HGB Conc 34.7 % (30-36); Mean Corpuscular Hemoglobin 32.1 PG (26-34); Mean Corpuscular Volume 92.7 fL (80-100); Monocytes Absolute Auto 600 /uL (0-900); Monocytes Percent Auto 7.6 % (3-14); Neutrophils Absolute Auto 6200 /uL (1500-7000); Neutrophils Percent Auto 74.3 % (50-75); Platelet Count 295 X10^3/uL (150-400); Red Blood Cell Count 3.69 X10^6/uL (4.0-5.2); Red Cell Distribution Width 13.4 % (11.6-14.8); White Blood Cell Count 8.4 X10^3/uL (4.5-11.0)
[2021-10-20 05:21] LABS: BUN Creatinine Ratio 15.8 (6-22); Blood Urea Nitrogen 15 mg/dL (7-17); Carbon Dioxide 19 mmol/L (22-32); Chloride 95 mmol/L (98-107); Estimated Glomerular Filt Rate 57.2 mL/min (>60); Glucose 145 mg/dL (80-110); HEMOLYSIS < 15 (0-50); Potassium 3.7 mmol/L (3.4-5.1); Sodium 123 mmol/L (137-145)
[2021-10-20] MEDS: ONDANSETRON 4 MG/2 ML INJ IV (05:27)
[2021-10-20] MEDS: ACETAMINOPHEN 325 MG TABLET 650 MG PO ×2 (05:27→11:17)
[2021-10-20] MEDS: KETOROLAC 30 MG/ML VIAL 15 MG IV ×2 (05:27→11:17)
[2021-10-20] MEDS: carvediloL 12.5 MG TABLET 25 MG PO (08:59)
[2021-10-20] MEDS: hydroCHLOROthiazide 25 MG TABLET 12.5 MG PO (09:00)
[2021-10-20] MEDS: ENOXAPARIN 40 MG/0.4 ML SYRINGE SUBCUT (09:00)
[2021-10-20] MEDS: lisinopriL 20 MG TABLET 40 MG PO (09:00)
[2021-10-20] MEDS: INSULIN LISPRO 100 UNIT/ML 3ML VIAL SUBCUT ×2 (09:01→13:00)
--- NOTE | 2021-10-20 10:39 | PM.PNPO.1 ---
Subjective Subjective Date Patient Seen: 10/20/21 Time Patient Seen: 10:40 Interval history: Mild nausea improving. Bowel movement this morning. Tolerating full liquid diet. Ambulating well pain is well controlled. Exam Vital Signs (past 8 hours): - 10/20/21 06:00 10/20/21 07:58 10/20/21 08:35 Temperature 99.5 F 98.6 F Pulse Rate 72 69 Respiratory Rate 16 20 Blood Pressure 153/80 H 143/81 H Pulse Oximetry 96 98 98 10/20/21 08:59 10/20/21 09:00 Temperature Pulse Rate 69 69 Respiratory Rate Blood Pressure 143/81 H 143/81 H Pulse Oximetry Oxygen Delivery Method Room Air Oxygen Flow Rate 0 Narrative Exam Narrative: General adult female alert oriented no acute distress Chest nonlabored respirations Abdomen infraumbilical incision clean dry intact laparoscopic port incisions intact with Steri-Strips. Objective Labs Result Diagrams: 10/20/21 04:54 10/20/21 04:54 Labs: Laboratory Results - last 24 hr 10/20/21 10/20/21 04:54 04:54 WBC 8.4 RBC 3.69 L Hgb 11.9 L Hct 34.2 L MCV 92.7 MCH 32.1 MCHC 34.7 RDW 13.4 Plt Count 295 Neut % (Auto) 74.3 Lymph % (Auto) 17.3 L [place] % (Auto) 7.6 Eos % (Auto) 0.6 L Baso % (Auto) 0.2 Neut # (Auto) 6200 Lymph # (Auto) 1500 [place] # (Auto) 600 Eos # (Auto) 100 Baso # (Auto) 0 Sodium 123 L Potassium 3.7 Chloride 95 L Carbon Dioxide 19 L BUN 15 Creatinine 0.95 Estimated GFR 57.2 L BUN/Creatinine Ratio 15.8 Glucose 145 H Calcium 9.0 PFSH Medical History (Updated 10/12/21 @ 09:33 by Adri Wayne RN) Anxiety about health Bilateral cataracts Diabetes Fatty liver Hearing loss Hx of Legionnaire's disease (~1989) Hypertension Surgical History (Updated 10/12/21 @ 09:15 by Adri Wayne RN) History of laparoscopic appendectomy (09/01/21) History of surgery Hx of cornea transplant Hx of hand surgery Social History household members: spouse Smoking Status: Never smoker alcohol intake: current Assessment & Plan Post-op Postoperative Procedures: Procedures Operation Date: 10/18/21 07:45 Actual Procedure Side Surgeon p Laparascopic assisted colectomy Right Paulie Gutierrez MD Postoperative status narrative: 76-year-old woman postoperative day 2 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 She is doing well and recovering appropriately. -regular diet -if tolerating diet may discharge home later today -chronic hyponatremia of no clinical significance will monitor Quality VTE Deep Vein Thrombosis/Pulmonary Embolism Present on Admission: No
--- NOTE | 2021-10-20 16:08 | PT.IPTN ---
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) Surgery Performed Operation Date: 10/18/21 07:45 Actual Procedures p Laparascopic assisted colectomy(Right) - Paulie Gutierrez MD Physical Therapy Treatment Note M2 PT-IP Current Condition Start: 10/18/21 13:55 Freq: NEEDED Status: Discharge Protocol: Document 10/20/21 15:54 SP (Rec: 10/23/21 13:24 SP [id number]) Physical Therapy Current Condition Current Condition Evaluation Date 10/19/21 Treatment Diagnosis appendiceal carcinoma s/p R hemicolectomy; difficulty in walking Onset Date 10/18/21 M3 PT-IP Subjective Start: 10/18/21 13:55 Freq: NEEDED Status: Discharge Protocol: Document 10/20/21 15:54 SP (Rec: 10/23/21 13:24 SP [id number]) Subjective Physical Therapy Visit Type Type Treatment Note Visit Start Time 15:54 Visit Stop Time 16:08 Total Visit Minutes 14 Notes Vitals taken during tx: seated: BP 166/82 HR 64 post mobiltiy: BP 168/ 88 HR 68 Pt reported nausea but wanting to work on mobility. Number of BATTERY TESTER AND REPAIRER Visits 1 Physical Therapy Visit Comments Patient Comments Pt agreeable to do PT Patient Goals return home with to assist her. Therapy Pain Assessment Pain When Pain Assessed During Mobility Pain Present Pain Present Pain Reported Location Abdomen Intensity 3 Scale Used Numeric (0 - 10) Description With Movement Pain Behaviors Facial Grimacing Pain Management Techniques Distraction,Modification of Treatment,Re-positioning, Timing of Activity with Medications M4 PT-IP Mobility and Gait Start: 10/18/21 13:55 Freq: NEEDED Status: Discharge Protocol: Document 10/20/21 15:54 SP (Rec: 10/23/21 13:24 SP [id number]) PT-Bed Mobility Assessment Rolling Type of Rolling Log Rolling Level of Assist Standby Assistance Sit to Supine Sit to Supine Standby Assistance PT-Transfer Assessment Sit to and From Stand Sit to and from Stand Standby Assistance,Use of Upper Extremities Equipment Transfer Assistive Device None,Gait Belt Orthotic/Prosthetic Devices or Brace: No Transfers Transfer Destination Bed,Chair Transfer Technique ambulated with no AD Transfer Ability Level of Assist Standby Assistance,Use of Upper Extremities Comments Mobility Comments Pt was walking around room when arrived, dressed in home clothes, stated waiting for , on his way. Pt demonstrated steady on feet, no LOB. Pt gait further distance into hallway to stairs, completed 1 PF step ascend/ descend CGA for safety assessment for entering home no support required, stable, no LOB. Completed ascend/ descend 3stairs B HR as has in home to manage sBA receiprocal stepping, stable. Pt returned to room, noted little sway during gait but self recoveries, approx 170 ft total. BATTERY TESTER AND REPAIRER suggested to use FWW for contact energy conservation longer distances and abdominal support for trunk balance for now and pt understood and agreed has FWW at home and will consider using. arrived end of tx and discussed progress made and stated didnt' need to see if she was able to complete SBA- CGA is capable of assisting her. Pt completed sit<>Supine SBA- Mod I with good demonstration precautions log roll technique and gentle abdominal bracing during mobility, and verbalized no lifting heavy objects. Pt was seated up in chair with in room when left. Pt is ok to return home with to assist her as needed when medically cleared . Gait Assessment Gait Gait Assistance Required: Standby Assistance Distance (Feet) 170 Able to Maintain Weight Bearing Status Yes During Gait Assistive Devices Assistive Device None,Front Wheeled Walker Orthotic/Prosthetic Devices or Brace: No Gait Deviations General Gait Pattern Antalgic Factors Limiting Gait Function Factors Limiting Gait Function Limited Range of Motion,Pain Comments Gait Comments see mobility comments. Stair Climbing Assessment Evaluation Level of Assist On Stairs Contact Guard Assistance Devices Stair Climbing Assistive Devices None,Left Railing,Right Railing Technique/Endurance Stair Climbing Direction Ascend and Descend Stair Climbing Technique Step Over Step Number of Steps Climbed 3 Stair Climbing Set # Repetitions (reps) 1 Comments Stair Climbing Comments completed 1 PF step CGA no AD, 3 stairs B HR SBA receiprocal stepping. PT-Balance Assessment Sitting Balance and Reactions Static Sitting Balance Ability Normal Dynamic Sitting Balance Ability Normal Standing Balance and Reactions Static Standing Balance Ability Good Dynamic Standing Balance Ability Fair Device Used no AD M5 PT-IP Objective Assessments Start: 10/18/21 13:55 Freq: NEEDED Status: Discharge Protocol: Document 10/19/21 11:38 AB (Rec: 10/19/21 12:30 AB [id number]) Orientation Orientation/Cognition Level of Alertness Alert Orientation Name,Place,Situation Language Function Ability No Deficits Noted Safety Awareness Decreased Safety Awareness Memory Description Short Term Impaired Comments with slight confusion Gross Range of Motion Lower Extremity ROM Assessment Within Functional Limits Strength Lower Extremity Strength Hip 4-/5 Knee 4-/5 Sensation Assessment Sensation Gross Sensation WNL Muscle Tone Muscle Tone WNL Yes M6 PT-IP Treatment Start: 10/18/21 13:55 Freq: NEEDED Status: Discharge Protocol: Document 10/20/21 15:54 SP (Rec: 10/23/21 13:24 SP [id number]) Physical Therapy Treatment Education Education Provided Precautions,Post-Op Packet, Safety M7 PT-IP Assessment and Plan Start: 10/18/21 13:55 Freq: NEEDED Status: Discharge Protocol: Document 10/20/21 15:54 SP (Rec: 10/23/21 13:24 SP [id number]) PT Summary Assessment and Plan Potential Rehabilitation Potential Good Status of Condition at Evaluation Evolving Summary Impairments Pain,ROM,Strength,Balance, Coordination,Sensation,Tone, Cognition,Bed Mobility, Transfers,Gait,Activity Tolerance Progress Towards Goals Progressing Toward Goals,Slow Progress due to Pain Assessment Summary Pt required SBA throughout tx with no AD, CGA on PF step, SBA 3 stairs BHR. Pt is ok to return home with to assist her when medically cleared. Goals Bed Mobility Goal Independent Transfer Goal Independent,Front Wheeled Walker Gait Goal Independent,Front Wheel Walker Gait Distance 250 Other Goals improve ambulation without AD SBA 300 ft up/down 2 steps B rails SBA, updown 1 step without AD SBA Days to Meet Goals 10 Frequency of Treatment Frequency Of Treatment Once a Day Treatment Plan Physical Therapy Treatment Plan Bed Mobility Training,Transfer Training,Gait Training, Therapeutic Exercise,Balance Retraining,Post Op Education, Discharge Planning,Hot or Cold Pack,Neuromuscular Re-ed, Coordination Retraining,Manual Therapy Other Recommendations and Next Treatment progress gait as needed. FWW Focus for energy conservation as needed longer distances when feels ready. Precautions Abdominal Surgery Precautions Log Roll,Lifting Restrictions, Gait Belt above Incisional Area Other Precautions good recall and demonstration of precautions. Recommendations To Nursing Amount of Assist Needed Standby Assistance Discharge Recommendations PT Discharge Recommendations Home with Assistance Transportation Needs at Discharge Private Vehicle
--- NOTE | 2021-10-20 16:10 | PM.DS.1 ---
History of Present Illness History of Present Illness Date Patient Seen: 10/20/21 Time Patient Seen: 16:10 Chief complaint: Colon resection Narrative: 76-year-old woman who underwent a laparoscopic appendectomy for perforated appendicitis August 2021.. 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 Staging studies were negative. She is here for elective right hemicolectomy Discharge Providers Provider Date of admission: 10/18/21 06:23 Discharge Date: 10/20/21 Primary care physician: Jensen Ching MD Consults: 10/18/21 10:24 Consult to Physical Therapy Evaluate & Treat Comment: Physician Instructions: Evaluate and Treat Discharge provider: Paulie Christianson MD Summary Hospital Course Discharge Diagnosis: Adenocarcinoma of appendix Chronic hyponatremia Diabetes Hospital Course: Patient underwent a laparoscopic assisted right hemicolectomy 10/18/2021. There was no evidence of metastatic disease intraoperatively. Operation was unremarkable. She progressed appropriately. At discharge she is afebrile without leukocytosis tolerating regular diet as return of bowel function pain is well controlled. Exam Vital Signs (past 8 hours): - 10/20/21 08:35 10/20/21 08:59 10/20/21 09:00 Temperature Pulse Rate 69 69 Respiratory Rate Blood Pressure 143/81 H 143/81 H Pulse Oximetry 98 10/20/21 10:00 10/20/21 11:00 10/20/21 15:00 Temperature 97.8 F 98.4 F Pulse Rate 60 65 Respiratory Rate 19 20 Blood Pressure 151/70 H 143/85 H Pulse Oximetry 98 99 99 Oxygen Delivery Method Room Air Oxygen Flow Rate 0 Narrative Exam Narrative: General at all adult female alert oriented no acute distress Chest nonlabored respirations Abdomen infraumbilical incision clean dry intact. Laparoscopic port incisions clean dry intact. Objective Labs Result Diagrams: 10/20/21 04:54 10/20/21 04:54 Labs: Laboratory Results - last 24 hr 10/20/21 10/20/21 04:54 04:54 WBC 8.4 RBC 3.69 L Hgb 11.9 L Hct 34.2 L MCV 92.7 MCH 32.1 MCHC 34.7 RDW 13.4 Plt Count 295 Neut % (Auto) 74.3 Lymph % (Auto) 17.3 L [place] % (Auto) 7.6 Eos % (Auto) 0.6 L Baso % (Auto) 0.2 Neut # (Auto) 6200 Lymph # (Auto) 1500 [place] # (Auto) 600 Eos # (Auto) 100 Baso # (Auto) 0 Sodium 123 L Potassium 3.7 Chloride 95 L Carbon Dioxide 19 L BUN 15 Creatinine 0.95 Estimated GFR 57.2 L BUN/Creatinine Ratio 15.8 Glucose 145 H Calcium 9.0 PFSH Medical History (Updated 10/12/21 @ 09:33 by Adri Wayne RN) Anxiety about health Bilateral cataracts Diabetes Fatty liver Hearing loss Hx of Legionnaire's disease (~1989) Hypertension Surgical History (Updated 10/12/21 @ 09:15 by Adri Wayne RN) History of laparoscopic appendectomy (09/01/21) History of surgery Hx of cornea transplant Hx of hand surgery Social History household members: spouse Smoking Status: Never smoker alcohol intake: current Discharge Plan Discharge Plan Patient Disposition: Home Provider Discharge Comment: No lifting greater then 20 lbs x 4 weeks No driving while taking narcotics OK to shower but do not submerge wounds until follow up Discharge orders & Medications Prescriptions: New ibuprofen 200 mg tablet 400 mg PO Q6H Qty: 60 0RF oxycodone 5 mg tablet See Rx Instructions .ROUTE .COMPLEX PRN (Reason: pain) Qty: 30 0RF Rx Instructions: 1-2 tabs every 6 hrs as needed for pain ondansetron HCl 4 mg tablet 4 mg PO Q6H PRN (Reason: nausea and vomiting) Qty: 30 0RF Continued Basaglar KwikPen U-100 Insulin 100 unit/mL (3 mL) insulin pen 20 unit SUBCUT BEDTIME 0RF Label Comments: INJECT 20 UNITS UNDER THE SKIN EVERY NIGHT AT BEDTIME carvedilol 25 mg tablet 25 mg PO BID 0RF Label Comments: TAKE 1 TABLET BY MOUTH TWICE DAILY lisinopril 40 mg tablet 40 mg PO DAILY 0RF Label Comments: TAKE 1 TABLET BY MOUTH ONCE DAILY. Pt states takes with evening meal metformin 850 mg tablet 850 mg PO TID 0RF Label Comments: TAKE 1 TABLET BY MOUTH THREE TIMES DAILY hydrochlorothiazide 25 mg Tablet 12.5 mg PO BID 0RF Discontinued neomycin 500 mg tablet 1 g PO TID 0 Days Qty: 6 0RF Rx Instructions: TAKE 2 tabs at 2 PM, 4 PM, and 10 PM the day prior to surgery metronidazole 500 mg tablet 1,000 mg PO TID Qty: 6 0RF Rx Instructions: TAKE 2 tabs at 2 PM, 4 PM, and 10 PM the day prior to surgery Follow up/Referrals: Paulie Christianson MD [Physician] - 11/04/21 11:30 am (appt:11/04 @ 11:30 w/dr christianson ) Diet/Activity/Treatments Diet: Diet as Tolerated Skin/Wound/Dressing Care Report to your healthcare provider any signs of infection, such as:: increased pain Discharge Data Primary Care Provider: Jensen Ching VTE Deep Vein Thrombosis/Pulmonary Embolism Present on Admission: No
--- NOTE | 2021-10-20 16:53 | PC.NURSE ---
Pt discharged at 1655, escorted off floor in wheelchair, accompanied by hospital staff. IV removed, discharge teaching provided including follow up appointments, medications and wound care. Questions and concerns addressed. Pt left floor with all belongings.
== END 2021-10-20 16:55 | disposition home or self-care (01) | DRG 330 ==
PROVIDERS: Admitting Provider Surgery; PCP Internal Medicine; Referring Provider Surgery; Visit Provider Surgery
PROC: 0DTE0ZZ Resection of Large Intestine, Open Approach (ICD-10-PCS; principal; 2021-10-18 07:45)
DX: C18.1 Malignant neoplasm of appendix (principal); E87.1 Hypo-osmolality and hyponatremia; E11.9 Type 2 diabetes mellitus without complications; I10 Essential (primary) hypertension; Z79.84 Long term (current) use of oral hypoglycemic drugs; Z20.822 Contact with and (suspected) exposure to COVID-19; Z79.4 Long term (current) use of insulin
CPT/HCPCS: 36415; 44205; 64450; 80048; 82962; 85025; 87635; 94760; 97116; 97162; C9803; J0131; J1100; J1650; J1815; J1885; J1956; J2250; J2405; J2704; J2765; J3010

== ENCOUNTER 2022-11-08 09:18 | Day surgery (SDC) | payer MEDICARE, OTHER, SELFPAY ==
[2021-10-18 12:42] VITALS: BMI 21.4
--- NOTE | 2022-11-08 | PATH_ITS ---
[facility] Accession Number: [id number] No. of containers..02 Tissue . 01 Material submitted: . PART A: colon - DESCENDING COLON POLYP PART B: rectum - RECTAL POLYP X 2 . 01 Diagnosis: A. Descending Colon Polyp: Hyperplastic polyp. . B. Rectal Polyps: Tubular adenoma x2. MRV 11/11/2022 1730 Local . 01 Electronically signed: . Chang Goyal MD, PhD, Pathologist NPI- [id number] . 01 Gross description: . Part A: DESCENDING COLON POLYP: Received in formalin is 1 fragment(s) of diop, soft tissue measuring 0.2 x 0.2 x 0.2 cm submitted entirely in 1 cassette(s) Part B: RECTAL POLYP X 2: Received in formalin are 2 fragment(s) of diop, soft tissue measuring 0.7 x 0.7 x 0.7 cm to 1.0 x 0.7 x 0.6 cm submitted entirely in 1 cassette(s) /SONY 11/09/2022 1933 Local . 01 Pathologist provided ICD-10: D12.8 . 01 CPT . 738195, [id number] Specimen Comment: A courtesy copy of this report has been sent to [phone] Performed at: 01 [facility] [address] [place] [address] [address], [place], [place] [id number] MD Per Ibarra MD Phone: [phone]
[2022-11-08 10:08] VITALS: BP 153/77; PULSE 60; RESP 21; TEMP 35.8; O2SAT 99; BMI 20.9
[2022-11-08] MEDS: LACTATED RINGERS 1,000 ML 200 ML IV (10:24)
--- NOTE | 2022-11-08 11:12 | P.HP_ITS ---
History of Present Illness History of Present Illness Date Patient Seen: 11/08/22 Time Patient Seen: 11:12 Chief complaint: Dx Colonoscopy Narrative: 77-year-old woman with a history of appendiceal adenocarcinoma who is here for a screening colonoscopy. She is status post right hemicolectomy 1 year ago. Pathology is as follows Diagnosis: Right Colon, Hemicolectomy (Terminal Ileum 4.5 cm in Length with Cecum and Colon 18.5 cm in Length): ?? Negative for residual tumor. ?? Margins negative for tumor. ?? Fourteen pericolonic lymph nodes negative for tumor by ?? ? immunohistochemistry studies (0/14). ?? Additional findings: diverticulosis, tubular adenoma (cecum), polypoid ? ? redundancy (colon), benign lymphoid aggregates ?? Pathologic Stage Classification (AJCC 8th Edition): pT3 pN0 ?? ? (staging updated to reflect negative lymph nodes). MRV? 10/28/2021? 1156 Local [facility] Medical History Anxiety about health Bilateral cataracts Diabetes Fatty liver Hearing loss Hx of Legionnaire's disease (~1989) Hypertension Surgical History History of laparoscopic appendectomy (09/01/21) History of surgery Hx of cornea transplant Hx of hand surgery Social History household members: spouse Smoking Status: Never smoker alcohol intake: current Meds Home Medications and Allergies Home Medications Medication Instructions Recorded Confirmed Type carvedilol 25 mg tablet 25 mg PO BID 09/01/21 11/08/22 History insulin glargine 100 unit/mL (3 20 unit SUBCUT BEDTIME 09/01/21 11/08/22 History mL) subcutaneous pen (Basaglar KwikPen U-100 Insulin) lisinopril 40 mg tablet 40 mg PO DAILY 09/01/21 11/08/22 History metformin 850 mg tablet 850 mg PO TID 09/01/21 11/08/22 History hydrochlorothiazide 25 mg tablet 12.5 mg PO BID 09/22/21 11/08/22 History ibuprofen 200 mg tablet 400 mg PO Q6H #60 tabs 10/20/21 11/08/22 Rx atorvastatin 1 QPM 11/08/22 History Allergies Allergy/AdvReac Type Severity Reaction Status Date / Time prednisone Allergy Intermediate Difficulty Verified 11/04/21 11:44 Breathing Penicillins AdvReac Severe Nausea Verified 11/04/21 11:44 Exam Vital Signs (past 8 hours): - 11/08/22 10:08 Temperature 96.5 F L Pulse Rate 60 Respiratory Rate 21 Blood Pressure 153/77 H Pulse Oximetry 99 Oxygen Delivery Method Room Air Oxygen Delivery Method Room Air Narrative Exam Narrative: General adult woman alert oriented no acute distress Abdomen soft nontender nondistended Assessment & Plan Assessment and plan (1) Adenocarcinoma of appendix: Status: Acute Assessment & Plan narrative: 77-year-old woman history of adenocarcinoma of the appendix status post right hemicolectomy 1 year ago, P T3 N0 here for screening colonoscopy. Technical details were discussed. Risks, benefits, alternatives explained. Risks including but not limited to myocardial infarction, aspiration, bleeding, pain, missed lesion, incomplete examination, need for further radiographic studies, colonic perforation, and need for major abdominal surgery were discussed. All questions were answered to their satisfaction, and they are in agreement with this plan.
[2022-11-08 11:44] VITALS: BP 99/66; PULSE 63; RESP 12; TEMP 36.8; O2SAT 99
--- NOTE | 2022-11-08 11:45 | P.OP.COLON_ITS ---
Operative Date/Time/Diagnoses Date of procedure: 11/08/22 Time of procedure: 11:45 Pre-op diagnosis: Appendiceal adenocarcinoma Post-op diagnosis: other (Polyps x3) Procedure & Clinicians Study performed: Colonoscopy and polypectomy Same procedure as scheduled: Yes Indications: 77-year-old woman status post right hemicolectomy for appendiceal adenocarcinoma T3 N0 here for screening/surveillance colonoscopy Procedure Notes Procedure in detail: The history and physical was performed/updated and the patient is ASA class is 2. The procedure was discussed in detail with the patient. Potential risks complications including infection, bleeding, missed diagnosis, perforation, need for surgery, and were explained. Their questions were answered and informed consent was obtained. Patient was brought to the procedure room and placed standard monitoring equ ipment. The patient's vital signs were monitored continuously throughout the entire procedure. Prior to starting time-out was performed. The patient was placed in the left lateral recumbent position. Procedural sedation was administered by anesthesia. Examination began with a thorough inspection of the perianal area there was no evidence of fissures, fistulae, external hemorrhoids or cutaneous malignancy. The colonoscopy scope was then placed into the anal canal and was advanced to the cecum, which was identified by the ileocecal valve, the appendiceal orifice and the confluence of the taenia. The scope was then slowly withdrawn examining colon thoroughly in all directions, irrigating it of any residual stool. Within the descending colon there is a 3 mm polyp removed with biopsy forceps. In the distal rectum there are 2 pedunculated polyps proximally 8 mm each removed with hot snare. The patient tolerated the procedure well. They will be discharged once criteria are met. The prep was of good/excellent quality. The withdrawl time was 9 minutes. Specimen(s): other (Rectal polyps x2, descending colonic polyp) Impression: Colonic polyps x3 Post-procedure Plan for aftercare: Follow-up is dependent on pathology findings Disposition: same day surgery
[2022-11-08 11:48] VITALS: BP 112/67; PULSE 62; RESP 18; TEMP 36.8; O2SAT 98
[2022-11-08 11:58] VITALS: BP 123/76; PULSE 65; RESP 15; TEMP 36.7; O2SAT 98
== END 2022-11-08 12:14 | disposition home or self-care (01) ==
PROVIDERS: PCP Internal Medicine; Referring Provider Surgery; Visit Provider Surgery
PROC: 0DJD8ZZ Inspection of Lower Intestinal Tract, Via Natural or Artificial Opening Endoscopic (ICD-10-PCS; CPT 45378; principal; 2022-11-08 10:45)
DX: Z12.11 Encounter for screening for malignant neoplasm of colon (principal); Z85.89 Personal history of malignant neoplasm of other organs and systems; Z90.49 Acquired absence of other specified parts of digestive tract; Z86.010 Personal history of colon polyps; K63.5 Polyp of colon; D12.8 Benign neoplasm of rectum
CPT/HCPCS: 45385; 45380; 82962; J2704